=== PATIENT | male | born 1965 | race Caucasian/White ===

== ENCOUNTER 2020-01-05 15:52 | Emergency (ER) | payer MEDICARE ==
[2020-01-05] MEDS ORDERED: Sodium Chloride 0.9% 1000 ML 1,000 ML IV STA (16:15)
--- NOTE | 2020-01-05 16:23 | ERPHSYRPT ---
- History of Present Illness Time Seen by Provider: 01/05/20 16:10 Source: patient, family Exam Limitations: no limitations Physician History: This is a 54-year-old male who has multiple medical issues. Patient has had a renal transplant in the past. It was performed in the . Is on immunosuppressive therapy chronically including prednisone daily. Also has been diagnosed with prostate cancer. Has, at times, he urinary retention. Recently discharged from [facility] for treatment of a pneumonia. His ago, the patient was having fevers and the patient was prescribed monurol antibiotic to treat his presumed urinary tract infection. His fever persisted this morning. However, on arrival his temperature is normal. Patient has chronic back pain and has back surgery in the past. He has a history of gout, gastroesophageal reflux disease, anemia. Patient was also placed on diflucan because he frequently gets yeast infections while on antibiotic therapy. Patient sees Dr. Mayer for his renal issues and Dr. Lopez for his transplant issues. Dr. Lopez is in [place] Timing/Duration: day(s) (2) Severity: mild Associated Symptoms: fever Allergies/Adverse Reactions: NSAIDS (Non-Steroidal Anti-Inflamma Adverse Reaction (Verified 04/12/19 11:01) d/t kidney failure iv Adverse Reaction (Uncoded 04/12/19 11:01) Iv dye d/t kidney failure Home Medications: Aspirin 81 gm Chew [Baby Aspirin 81 mg Chew] 81 mg PO DAILY 07/02/17 [ History] Atorvastatin Calcium [Lipitor] 40 mg PO HS 07/02/17 [History] Cholecalciferol (Vitamin D3) [Vitamin D] 400 unit PO DAILY 07/02/17 [History] Docusate Sodium 100 mg [Colace 100 MG] 100 mg PO BID 07/02/17 [History] Ferrous Sulfate 325 mg [Feosol 325 mg] 325 mg PO DAILY 07/02/17 [History] Folic Acid 1 mg PO DAILY 07/02/17 [History] Gabapentin 300 mg PO TID 07/02/17 [History] Hydrocodone Bit/Acetaminophen [[place] 10-325 Tablet] 2 each PO Q4H PRN PRN [History] Polyethylene Glycol 3350 [Miralax] 17 gm PO DAILY PRN PRN 07/02/17 [History] Sodium Bicarbonate 1,300 mg PO TID 07/02/17 [History] Tamsulosin HCl 0.4 mg [Flomax 0.4 MG] 0.8 mg PO HS 07/02/17 [History] Zolpidem Tartrate [Ambien] 10 mg PO HS 07/02/17 [History] predniSONE [Prednisone] 10 mg PO DAILY 07/02/17 [History] Allopurinol 100 mg [Zyloprim 100 mg] 100 mg PO DAILY 04/13/19 [History] Magnesium Oxide 400 mg [Mag-Ox 400] 400 mg PO DAILY 04/13/19 [History] Fluconazole [Diflucan] 200 mg PO DAILY 01/05/20 [History] Fosfomycin Tromethamine [Monurol] 3 gm PO TID 01/05/20 [History] Linagliptin [Tradjenta] 5 mg PO DAILY 01/05/20 [History] Pantoprazole 20 mg [Protonix 20MG Tablet] 20 mg PO DAILY 01/05/20 [History ] Sevelamer Carbonate [Renvela] 800 mg PO TID 01/05/20 [History] mycophenolate mofetiL [Mycophenolate Mofetil] 250 mg PO BID 01/05/20 [History] - Review of Systems Constitutional: Fever, Weakness Eyes: No Symptoms Ears, Nose, & Throat: No Symptoms Respiratory: No Symptoms Cardiac: No Symptoms Abdominal/Gastrointestinal: No Symptoms Genitourinary Symptoms: No Symptoms Musculoskeletal: No Symptoms Skin: No Symptoms Neurological: No Symptoms Psychological: No Symptoms Endocrine: No Symptoms Hematologic/Lymphatic: No Symptoms Immunological/Allergic: No Symptoms All Other Systems: Reviewed and Negative - Past Medical History Pertinent Past Medical History: Yes Neurological History: TIA ENT History: Cataracts Cardiac History: High Cholesterol, Hypertension Respiratory History: No Pertinent History Endocrine Medical History: No Pertinent History Musculoskeletal History: Osteoarthritis, Osteoporosis, Other GI Medical History: GERD, Other History: Renal Disease, Other Psycho-Social History: No Pertinent History Male Reproductive Disorders: Prostate Problems Other Medical History: kidney transplant 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 rods herniated disc and bone fragment to back. - Past Surgical History Past Surgical History: Yes Neuro Surgical History: No Pertinent History Cardiac: No Pertinent History Respiratory: No Pertinent History Gastrointestinal: No Pertinent History Genitourinary: Kidney Surgery, Kidney Transplant Musculoskeletal: Orthopedic Surgery Male Surgical History: No Pertinent History Other Surgical History: lymph node removed from L neck, fistula L side, back surgery, skin CA removed from L shoulder squamous cell carcinoma and basal cell R scalp and chest. shoulder rotator cuff R side.prostate cancer.[id number]. [id number] - Social History Smoking Status: Former smoker Exposure to second hand smoke: No Drug Use: none - Nursing Vital Signs Nursing Vital Signs: Initial Vital Signs Temperature 98.6 F 01/05/20 16:01 Pulse Rate 65 01/05/20 16:01 Respiratory Rate 18 01/05/20 16:01 Blood Pressure 106/60 01/05/20 16:01 O2 Sat by Pulse Oximetry 94 L 01/05/20 16:01 Pain Scale Pain Intensity 8 Ordered Tests: Active Orders 24 hr Category Date Time Status Garcia [Catheter-Hewitt Garcia] STAT Care 01/05/20 16:17 Active IV Insertion STAT Care 01/05/20 16:15 Active Pulse Oximetry (ED) STAT Care 01/05/20 16:15 Active CHEST 1 VIEW (PORTABLE) Stat Exams 01/05/20 16:16 Taken BLOOD CULTURE Stat Lab 01/05/20 16:35 Received CBC W DIFF Stat Lab 01/05/20 16:39 Completed CMP Stat Lab 01/05/20 16:39 Completed CULTURE,URINE Stat Lab 01/05/20 17:30 Received Lactic Acid Stat Lab 01/05/20 16:29 Completed UA W/RFX UR CULTURE Stat Lab 01/05/20 17:30 Completed Medication Summary Discontinued Medications Generic Name Dose Route Start Last Admin Trade Name Chitra PRN Reason Stop Dose Admin Sodium Chloride 1,000 mls @ 999 mls/hr 01/05/20 16:15 01/05/20 17:51 Sodium Chloride 0.9% 1000 Ml IV 01/05/20 17:15 Infused .Q1H1M STA Infusion Sodium Chloride Confirm 01/05/20 16:46 Sodium Chloride 0.9% 1000 Ml Administered 01/05/20 16:47 Dose 1,000 mls @ ud .ROUTE .STK-MED ONE Sodium Chloride Confirm 01/05/20 16:52 Sodium Chloride 0.9% 1000 Ml Administered 01/05/20 16:53 Dose 1,000 mls @ ud .ROUTE .STK-MED ONE Lab/Rad Data: Laboratory Result Diagrams 01/05/20 16:39 01/05/20 16:39 Laboratory Results 01/05/20 01/05/20 01/05/20 Range/Units 17:30 16:39 16:39 WBC 9.9 (4.0-10.5) K/mm3 RBC 3.09 L (4.1-5.6) M/mm3 Hgb 9.4 L (12.5-18.0) gm/dl Hct 32.3 L (42-50) % MCV 104.5 H (78-100) fl MCH 30.4 (26-32) pg MCHC 29.1 L (32-36) g/dl RDW 17.7 H (11.5-14.0) % Plt Count 246 (150-450) K/mm3 MPV 9.8 (7.5-11.0) fl Gran % 79.7 H (36.0-66.0) % Eos # (Auto) 0.19 (0-0.5) Absolute Lymphs (auto) 0.94 L (1.0-4.6) Absolute Monos (auto) 0.85 (0.0-1.3) Lymphocytes % 9.5 L (24.0-44.0) % Monocytes % 8.6 (0.0-12.0) % Eosinophils % 1.9 (0.00-5.0) % Basophils % 0.3 (0.0-0.4) % Absolute Granulocytes 7.84 H (1.4-6.9) Basophils # 0.03 (0-0.4) Sodium 143 (137-145) mmol/L Potassium 4.7 (3.5-5.1) mmol/L Chloride 104 (98-107) mmol/L Carbon Dioxide 25 (22-30) mmol/L Anion Gap 18.6 H (5-15) MEQ/L BUN 79 H (9-20) mg/dL Creatinine 5.84 H (0.66-1.25) mg/dL Estimated GFR 10.7 ML/MIN Glucose 105 (74-106) mg/dL Lactic Acid (0.4-2.0) Calcium 8.4 (8.4-10.2) mg/dL Total Bilirubin 0.50 (0.2-1.3) mg/dL AST 43 (17-59) U/L ALT 16 (0-50) U/L Alkaline Phosphatase 59 (38-126) U/L Serum Total Protein 6.7 (6.3-8.2) g/dL Albumin 3.5 (3.5-5.0) g/dL Urine Color YELLOW (YELLOW) Urine Appearance CLOUDY (CLEAR) Urine pH 6.0 (5-6) Ur Specific [place] 1.014 (1.005-1.025) Urine Protein 100 (Negative) Urine Ketones NEGATIVE (NEGATIVE) Urine Blood MODERATE (0-5) Servando/ul Urine Nitrite NEGATIVE (NEGATIVE) Urine Bilirubin NEGATIVE (NEGATIVE) Urine Urobilinogen NEGATIVE (0-1) mg/dL Ur Leukocyte Esterase LARGE (NEGATIVE) Urine WBC (Auto) >100 (0-5) /HPF Urine RBC (Auto) 11-15 (0-2) /HPF U Epithel Cells (Auto) NONE (FEW) /HPF Urine Bacteria (Auto) NONE (NEGATIVE) /HPF Urine Culture Reflexed ORDERED SEPARATELY (NO) Urine Glucose NEGATIVE (NEGATIVE) mg/dL 01/05/20 Range/Units 16:29 WBC (4.0-10.5) K/mm3 RBC (4.1-5.6) M/mm3 Hgb (12.5-18.0) gm/dl Hct (42-50) % MCV (78-100) fl MCH (26-32) pg MCHC (32-36) g/dl RDW (11.5-14.0) % Plt Count (150-450) K/mm3 MPV (7.5-11.0) fl Gran % (36.0-66.0) % Eos # (Auto) (0-0.5) Absolute Lymphs (auto) (1.0-4.6) Absolute Monos (auto) (0.0-1.3) Lymphocytes % (24.0-44.0) % Monocytes % (0.0-12.0) % Eosinophils % (0.00-5.0) % Basophils % (0.0-0.4) % Absolute Granulocytes (1.4-6.9) Basophils # (0-0.4) Sodium (137-145) mmol/L Potassium (3.5-5.1) mmol/L Chloride (98-107) mmol/L Carbon Dioxide (22-30) mmol/L Anion Gap (5-15) MEQ/L BUN (9-20) mg/dL Creatinine (0.66-1.25) mg/dL Estimated GFR ML/MIN Glucose (74-106) mg/dL Lactic Acid 0.7 (0.4-2.0) Calcium (8.4-10.2) mg/dL Total Bilirubin (0.2-1.3) mg/dL AST (17-59) U/L ALT (0-50) U/L Alkaline Phosphatase (38-126) U/L Serum Total Protein (6.3-8.2) g/dL Albumin (3.5-5.0) g/dL Urine Color (YELLOW) Urine Appearance (CLEAR) Urine pH (5-6) Ur Specific [place] (1.005-1.025) Urine Protein (Negative) Urine Ketones (NEGATIVE) Urine Blood (0-5) Servando/ul Urine Nitrite (NEGATIVE) Urine Bilirubin (NEGATIVE) Urine Urobilinogen (0-1) mg/dL Ur Leukocyte Esterase (NEGATIVE) Urine WBC (Auto) (0-5) /HPF Urine RBC (Auto) (0-2) /HPF U Epithel Cells (Auto) (FEW) /HPF Urine Bacteria (Auto) (NEGATIVE) /HPF Urine Culture Reflexed (NO) Urine Glucose (NEGATIVE) mg/dL - Progress Progress: unchanged Progress Note: 01/05/20 18:[address] Wong who is covering for the patient's senior developer, Dr. Mayer. I reviewed the patient's history, condition, laboratory data and old lab results. Symptomatically improved. Dr. Wong states that the patient can go home, continue his antibiotics and antifungal medication as prescribed. Patient is to follow-up with his senior developer on Wednesday, January 08, [address]Jose Cruz: Other (Dr. Wong) Counseled pt/family regarding: lab results, diagnosis, need for follow-up - Departure Departure Disposition: Home Clinical Impression: UTI (urinary tract infection), Urinary retention Condition: Stable Critical Care Time: No Referrals: XUAN CASE [Primary Care Provider] - Additional Instructions: Continue Garcia catheter. Call your urologist on Wednesday January 08, 2020 for further management. Return to the emergency department if symptoms worsen. Continue your antibiotics and antifungal medication as prescribed.
[2020-01-05 16:41] LABS: Absolute Neutrophil Ct (ANC) 7.84 (1.4-6.9); BASOPHIL % 0.3 % (0.0-0.4); Basophil (Absolute #) 0.03 (0-0.4); Eosinophil % 1.9 % (0.00-5.0); Eosinophil (Absolute #) 0.19 (0-0.5); Hematocrit 32.3 % (42-50); Hemoglobin 9.4 gm/dl (12.5-18.0); Lymphocyte (Absolute #) 0.94 (1.0-4.6); Lymphocytes % 9.5 % (24.0-44.0); Mean Cell Volume 104.5 fl (78-100); Mean Corpuscular Hemoglobin 30.4 pg (26-32); Mean Corpuscular Hgb Concent. 29.1 g/dl (32-36); Mean Platelet Volume 9.8 fl (7.5-11.0); Monocyte (Absolute #) 0.85 (0.0-1.3); Monocytes % 8.6 % (0.0-12.0); Neutrophil % 79.7 % (36.0-66.0); Platelet Count 246 K/mm3 (150-450); Red Blood Count 3.09 M/mm3 (4.1-5.6); Red Cell Distribution Width 17.7 % (11.5-14.0); White Blood Count 9.9 K/mm3 (4.0-10.5)
[2020-01-05] MEDS ORDERED: Sodium Chloride 0.9% 1000 ML 0 ML ONE (16:46)
[2020-01-05] MEDS ORDERED: Sodium Chloride 0.9% 1000 ML 1,000 ML ONE (16:52)
[2020-01-05 16:57] LABS: ALBUMIN 3.5 g/dL (3.5-5.0); ANION GAP 18.6 MEQ/L (5-15); BILIRUBIN,TOTAL 0.5 mg/dL (0.2-1.3); Calcium 8.4 mg/dL (8.4-10.2); Creatinine 1 5.84 mg/dL (0.66-1.25); Potassium 4.7 mmol/L (3.5-5.1); Total Protein 6.7 g/dL (6.3-8.2)
[2020-01-05 17:47] LABS: Appearance CLOUDY (CLEAR); Bilirubin NEGATIVE (NEGATIVE); Blood MODERATE Ery/ul (0-5); Glucose NEGATIVE (NEGATIVE); Ketones NEGATIVE (NEGATIVE); Leukocyte Esterase LARGE (NEGATIVE); Nitrite NEGATIVE (NEGATIVE); Protein,Urine Dip 100 (Negative); Specific Gravity 1.014 (1.005-1.025); Urobilinogen NEGATIVE mg/dL (0-1); WBC >100 /HPF (0-5)
[2020-01-05 18:46] VITALS: BP 105/68; PULSE 81; O2SAT 99
--- NOTE | 2020-01-05 21:39 | XRAY ---
Indication: Fever. Comparison: None Portable chest demonstrates minimal right base subsegmental atelectasis/scarring. Remaining heart and lungs normal with right Port-A-Cath. Bony thorax demonstrates mild degenerative changes, healing posterior left 8 rib fracture, and partially visualized lumbar spinal hardware. Impression: Nonacute chest with chronic features.
== END 2020-01-05 19:00 | disposition home or self-care (01) ==
LOC: ED 15:52
DX: N39.0 Urinary tract infection, site not specified (principal); R33.9 Retention of urine, unspecified; I10 Essential (primary) hypertension; Z79.899 Other long term (current) drug therapy
CPT/HCPCS: 36000; 36415; 51702; 71045; 80053; 81001; 83605; 85025; 87040; 87086; 94760; 96360; 99284; J1642

== ENCOUNTER 2020-02-04 15:33 | Emergency (ER) | payer MEDICARE ==
[2020-02-04 16:11] VITALS: BP 112/65
[2020-02-04] MEDS ORDERED: XYLOCAINE 1% HCL 20 ML MDV ONE (16:37)
--- NOTE | 2020-02-04 17:58 | ERPHSYRPT ---
- History of Present Illness Time Seen by Provider: 02/04/20 15:45 Source: patient Exam Limitations: no limitations Patient Subjective Stated Complaint: Cut to left elbow Triage Nursing Assessment: blood noted on dressing and sleeve to left elbow Physician History: Is a 54-year-old male who has a history of chronic kidney diseasefistula in his left forearm presents with a laceration to the left elbow and abrasion to the back from a fall low height onto concrete. Of consciousness no other complaint of pain except the elbow and the back Occurred: just prior to arrival Reason for Fall: unknown Injuries/Pain Location: upper extremity (Left elbow), back Loss of Consciousness: no loss of consciousness Quality: sharpness Severity of Pain-Max: mild Severity of Pain-Current: mild Modifying Factors: Improves With: nothing Associated Symptoms (Fall): denies symptoms Allergies/Adverse Reactions: NSAIDS (Non-Steroidal Anti-Inflamma Adverse Reaction (Verified 04/12/19 11:01) d/t kidney failure iv Adverse Reaction (Uncoded 04/12/19 11:01) Iv dye d/t kidney failure Home Medications: Aspirin 81 gm Chew [Baby Aspirin 81 mg Chew] 81 mg PO DAILY 07/02/17 [ History] Atorvastatin Calcium [Lipitor] 40 mg PO HS 07/02/17 [History] Cholecalciferol (Vitamin D3) [Vitamin D] 400 unit PO DAILY 07/02/17 [History] Docusate Sodium 100 mg [Colace 100 MG] 100 mg PO BID 07/02/17 [History] Ferrous Sulfate 325 mg [Feosol 325 mg] 325 mg PO DAILY 07/02/17 [History] Folic Acid 1 mg PO DAILY 07/02/17 [History] Gabapentin 300 mg PO TID 07/02/17 [History] Hydrocodone Bit/Acetaminophen [[place] 10-325 Tablet] 2 each PO Q4H PRN PRN [History] Polyethylene Glycol 3350 [Miralax] 17 gm PO DAILY PRN PRN 07/02/17 [History] Sodium Bicarbonate 1,300 mg PO TID 07/02/17 [History] Tamsulosin HCl 0.4 mg [Flomax 0.4 MG] 0.8 mg PO HS 07/02/17 [History] Zolpidem Tartrate [Ambien] 10 mg PO HS 07/02/17 [History] predniSONE [Prednisone] 10 mg PO DAILY 07/02/17 [History] Allopurinol 100 mg [Zyloprim 100 mg] 100 mg PO DAILY 04/13/19 [History] Magnesium Oxide 400 mg [Mag-Ox 400] 400 mg PO DAILY 04/13/19 [History] Fluconazole [Diflucan] 200 mg PO DAILY 01/05/20 [History] Fosfomycin Tromethamine [Monurol] 3 gm PO TID 01/05/20 [History] Linagliptin [Tradjenta] 5 mg PO DAILY 01/05/20 [History] Pantoprazole 20 mg [Protonix 20MG Tablet] 20 mg PO DAILY 01/05/20 [History ] Sevelamer Carbonate [Renvela] 800 mg PO TID 01/05/20 [History] mycophenolate mofetiL [Mycophenolate Mofetil] 250 mg PO BID 01/05/20 [History] Hx Tetanus, Diphtheria Vaccination/Date Given: No Hx Influenza Vaccination/Date Given: Yes (08/17) Hx Pneumococcal Vaccination/Date Given: No Immunizations Up to Date: Yes - Review of Systems Constitutional: No Fever, No Chills Eyes: No Symptoms Ears, Nose, & Throat: No Symptoms Respiratory: No Cough, No Dyspnea Cardiac: No Chest Pain, No Edema, No Syncope Abdominal/Gastrointestinal: No Abdominal Pain, No Nausea, No Vomiting, No Diarrhea Genitourinary Symptoms: No Dysuria Musculoskeletal: No Back Pain, No Neck Pain Skin: No Rash Neurological: No Dizziness, No Focal Weakness, No Sensory Changes Psychological: No Symptoms Endocrine: No Symptoms All Other Systems: Reviewed and Negative - Past Medical History Pertinent Past Medical History: Yes Neurological History: No Pertinent History ENT History: Cataracts Cardiac History: No Pertinent History Respiratory History: No Pertinent History Endocrine Medical History: Other Musculoskeletal History: Osteoporosis GI Medical History: No Pertinent History History: Renal Disease Psycho-Social History: No Pertinent History Male Reproductive Disorders: Prostate Cancer Other Medical History: Kidney transplant 1995, Fistula in Left Forearm, Current Prostate Cancer, Chronic Back pain, Urine Culture submitted wednesday - Past Surgical History Past Surgical History: Yes Neuro Surgical History: Other Cardiac: No Pertinent History Respiratory: No Pertinent History Gastrointestinal: No Pertinent History Genitourinary: Kidney Surgery Musculoskeletal: Other Male Surgical History: No Pertinent History Other Surgical History: Laminectomy ( [place] x 2, Screws x 38)2014. Laminectomy 2017 lengthened willam. 1992 Fistula in Left forearm. 1995 Kidney transplant. 2019 Port Right clavicle - Social History Smoking Status: Former smoker Exposure to second hand smoke: No Drug Use: none Patient Lives Alone: No - Nursing Vital Signs Nursing Vital Signs: Initial Vital Signs Temperature 98.3 F 02/04/20 15:34 Pulse Rate 83 02/04/20 15:34 Respiratory Rate 18 02/04/20 15:34 Blood Pressure 112/65 02/04/20 15:34 O2 Sat by Pulse Oximetry 99 02/04/20 15:34 Pain Scale Pain Intensity 0 - Elyssa Coma Score Best Eye Response ([place]): (4) open spontaneously Best Verbal Response (Elyssa): (5) oriented Best Motor Response ([place]): (6) obeys commands [place] Total: 15 - Physical Exam General Appearance: mild distress, alert Head Injury: no evidence of injury Eye Exam: PERRL/EOMI ENT Exam: airway nml Neck Exam: normal inspection, No tenderness Respiratory/Chest Exam: normal breath sounds, No chest tenderness, No respiratory distress Cardiovascular Exam: normal heart sounds, regular rate/rhythm Gastrointestinal Exam: soft, No tenderness, No distention, No guarding, No ecchymosis Back Exam: other (Superficial abrasion to the lower left lumbar area 3 cm in diameter) Extremity Exam: lacerations (6 cm laceration transverse across the olecranon area of the left elbow neurovascular tendon is intact), other (Still the left forearm still has a thrill) Peripheral Pulses: carotid (R): 2+, carotid (L): 2+ Neurologic Exam: alert, oriented x 3 Skin Exam: jaundice, laceration (Elbow) SpO2: 99 O2 Delivery: Room Air Procedures - Laceration/Wound Repair Left Posterior Elbow Wound Location: Left Wound Length (cm): 6 Wound's Depth, Shape: flap Wound Explored: no foreign body noted Irrigated: Yes Hibiclens Prep: Yes Anesthesia: 1% Lidocaine Volume Anesthetic (ccs): 7 Wound Debrided: minimal Wound Repaired With: sutures Suture Size/Type: 4-0, nylon Number of Sutures: 6 Sterile Dressing Applied?: Yes Splint Applied?: No Sling Applied?: No - Course Nursing assessment & vital signs reviewed: Yes Ordered Tests: Active Orders 24 hr Category Date Time Status ELBOW (2 VIEW) Stat Exams 02/04/20 17:10 Taken Medication Summary Discontinued Medications Generic Name Dose Route Start Last Admin Trade Name Chitra PRN Reason Stop Dose Admin Lidocaine HCl Confirm 02/04/20 16:37 Xylocaine 1% Hcl 20 Ml Mdv Administered 02/04/20 16:38 Dose 10 ml .ROUTE .[facility] - Progress Progress: improved - Departure Departure Disposition: Home Clinical Impression: Laceration of elbow Condition: Stable Critical Care Time: No Referrals: XUAN CASE [Primary Care Provider] - Instructions: Wound Care (DC), Laceration Repair With Stitches (DC)
[2020-02-04 18:12] VITALS: PULSE 72; O2SAT 97
--- NOTE | 2020-02-05 08:50 | XRAY ---
Indication: Pain/laceration following fall. Comparison: None 2 views of the left elbow demonstrates posterior soft tissue swelling/laceration and triceps tendon chronic tendinopathy calcifications. No other bony, articular, or soft tissue abnormalities. Comment: Preliminary interpretation was made by [facility]. No critical discrepancy.
== END 2020-02-04 18:13 | disposition home or self-care (01) ==
LOC: ED 15:33
DX: S51.012A Laceration without foreign body of left elbow, initial encounter (principal); W17.89XA Other fall from one level to another, initial encounter; S30.810A Abrasion of lower back and pelvis, initial encounter; M54.9 Dorsalgia, unspecified; Z79.899 Other long term (current) drug therapy; Z79.891 Long term (current) use of opiate analgesic
CPT/HCPCS: 12002; 73070; 99283

== ENCOUNTER 2020-02-20 13:57 | Observation (INO) | payer MEDICARE, SELFPAY ==
[2020-02-20] MEDS ORDERED: TYLENOL 325 MG PO ONE (14:19)
[2020-02-20] MEDS ORDERED: Sodium Chloride 0.9% 1000 ML 1,000 ML IV STA (14:19)
[2020-02-20] MEDS ORDERED: TYLENOL 325 MG ONE (14:22)
[2020-02-20] MEDS ORDERED: Sodium Chloride 0.9% 1000 ML 1,000 ML ONE (14:22)
[2020-02-20 14:30] LABS: Hematocrit 30.8 % (42-50); Hemoglobin 9.6 gm/dl (12.5-18.0); Mean Cell Volume 97.2 fl (78-100); Mean Corpuscular Hemoglobin 30.3 pg (26-32); Mean Corpuscular Hgb Concent. 31.2 g/dl (32-36); Mean Platelet Volume 10.3 fl (7.5-11.0); Platelet Count 220 K/mm3 (150-450); Red Blood Count 3.17 M/mm3 (4.1-5.6); Red Cell Distribution Width 18.6 % (11.5-14.0); White Blood Count 21.7 K/mm3 (4.0-10.5)
[2020-02-20 14:37] LABS: ALBUMIN 3.4 g/dL (3.5-5.0); ANION GAP 14.7 MEQ/L (5-15); BILIRUBIN,TOTAL 0.7 mg/dL (0.2-1.3); Calcium 8.6 mg/dL (8.4-10.2); Creatinine 1 3.63 mg/dL (0.66-1.25); Potassium 4.9 mmol/L (3.5-5.1); Total Protein 6.5 g/dL (6.3-8.2)
--- NOTE | 2020-02-20 14:59 | ERPHSYRPT ---
- History of Present Illness Time Seen by Provider: 02/20/20 14:34 Source: patient, family Exam Limitations: no limitations Patient Subjective Stated Complaint: Fever Triage Nursing Assessment: Patient brought back to ED via w/c and transferred to bed with assist of 1. Patient's states patient started with fever last night as high as 103.7. Patient's report patient being lethargic. Patient also has cloudy urine with mucus in it. Patient has hx of chronic UTI's due to kidney problems. Patient denies pain or discomfort. 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 Patient/ report feeling fatigued and tired with no energy to do his routine activities. He feels totally drained and has decreased urine output. Per report he has similar feeling multiple times in the past whenever he gets UTI. He was recently seen at his urologist office and per urology nurse his urine was clear. Patient tried to get hold of urologist but could not. Urologist office called and recommended starting him on Cipro and fluconazole. He denies any cough or shortness of breath. No abdominal pain nausea or vomiting. No URI symptoms. Denies any positive sick contact. No history of recent travel. Timing/Duration: day(s) (1), gradual onset, worse Severity: moderate Associated Symptoms: fever, malaise, No nausea, No vomiting, No abdominal pain, No shortness of breath Allergies/Adverse Reactions: NSAIDS (Non-Steroidal Anti-Inflamma Adverse Reaction (Verified 02/20/20 13:58) d/t kidney failure iv Adverse Reaction (Uncoded 02/20/20 13:58) Iv dye d/t kidney failure Home Medications: Aspirin 81 gm Chew [Baby Aspirin 81 mg Chew] 81 mg PO DAILY 07/02/17 [ History] Atorvastatin Calcium [Lipitor] 40 mg PO HS 07/02/17 [History] Cholecalciferol (Vitamin D3) [Vitamin D] 400 unit PO DAILY 07/02/17 [History] Docusate Sodium 100 mg [Colace 100 MG] 100 mg PO BID 07/02/17 [History] Ferrous Sulfate 325 mg [Feosol 325 mg] 325 mg PO DAILY 07/02/17 [History] Folic Acid 1 mg PO DAILY 07/02/17 [History] Gabapentin 300 mg PO TID 07/02/17 [History] Hydrocodone Bit/Acetaminophen [[place] 10-325 Tablet] 2 each PO Q4H PRN PRN [History] Polyethylene Glycol 3350 [Miralax] 17 gm PO DAILY PRN PRN 07/02/17 [History] Sodium Bicarbonate 650 mg PO DAILY 07/02/17 [History] Tamsulosin HCl 0.4 mg [Flomax 0.4 MG] 0.4 mg PO HS 07/02/17 [History] Zolpidem Tartrate [Ambien] 10 mg PO HS 07/02/17 [History] predniSONE [Prednisone] 10 mg PO DAILY 07/02/17 [History] Allopurinol 100 mg [Zyloprim 100 mg] 100 mg PO DAILY 04/13/19 [History] Magnesium Oxide 400 mg [Mag-Ox 400] 400 mg PO BID 04/13/19 [History] Linagliptin [Tradjenta] 5 mg PO DAILY 01/05/20 [History] Pantoprazole 20 mg [Protonix 20MG Tablet] 20 mg PO DAILY 01/05/20 [History ] mycophenolate mofetiL [Mycophenolate Mofetil] 250 mg PO BID 01/05/20 [History] calcitrioL [Calcitriol] 1 tab PO DAILY 02/20/20 [History] Hx Tetanus, Diphtheria Vaccination/Date Given: No Hx Influenza Vaccination/Date Given: Yes Hx Pneumococcal Vaccination/Date Given: Yes Immunizations Up to Date: Yes Travel Risk - International Travel Have you traveled outside of the country in past 3 weeks: No Have you or anyone close to you been diagnosed with or: No Do your reside in a community with a known COVID-19 case?: No - Review of Systems Constitutional: Fever Eyes: Eye Redness Ears, Nose, & Throat: No Symptoms Respiratory: No Symptoms Cardiac: No Symptoms Abdominal/Gastrointestinal: No Symptoms Genitourinary Symptoms: Dysuria Musculoskeletal: No Symptoms Skin: No Symptoms Neurological: No Symptoms Psychological: No Symptoms Endocrine: No Symptoms Hematologic/Lymphatic: No Symptoms Immunological/Allergic: No Symptoms - Past Medical History Pertinent Past Medical History: Yes Neurological History: TIA ENT History: Cataracts Cardiac History: High Cholesterol, Hypertension Respiratory History: No Pertinent History Endocrine Medical History: No Pertinent History Musculoskeletal History: Osteoarthritis, Osteoporosis, Other GI Medical History: GERD, Other History: Renal Disease, Other Psycho-Social History: No Pertinent History Male Reproductive Disorders: Prostate Cancer Other Medical History: kidney transplant 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 rods herniated disc and bone fragment to back. Skin cancer to head. Lamectomy X 2 , pelvic fx. - Past Surgical History Past Surgical History: Yes Neuro Surgical History: No Pertinent History Cardiac: No Pertinent History Respiratory: No Pertinent History Gastrointestinal: No Pertinent History Genitourinary: Kidney Surgery, Kidney Transplant Musculoskeletal: Orthopedic Surgery Male Surgical History: No Pertinent History Other Surgical History: lymph node removed from L neck, fistula L side, back surgery, skin CA removed from L shoulder squamous cell carcinoma and basal cell R scalp and chest. shoulder rotator cuff R side.prostate cancer. Parathyroid removal 1995 and 2011 - Social History Smoking Status: Former smoker Exposure to second hand smoke: No Drug Use: none Patient Lives Alone: No - Nursing Vital Signs Nursing Vital Signs: Initial Vital Signs Temperature 102.3 F 02/20/20 14:01 Pulse Rate 115 H 02/20/20 14:01 Respiratory Rate 17 02/20/20 14:01 Blood Pressure 94/59 02/20/20 14:01 O2 Sat by Pulse Oximetry 94 L 02/20/20 14:01 Pain Scale Pain Intensity 0 - Physical Exam General Appearance: no apparent distress, alert, lethargy Eye Exam: PERRL/EOMI, eyes nml inspection Ears, Nose, Throat Exam: TMs normal, pharyngeal erythema Neck Exam: normal inspection, non-tender, supple, full range of motion Respiratory Exam: normal breath sounds, lungs clear, No chest tenderness, No respiratory distress Cardiovascular Exam: regular rate/rhythm, normal heart sounds, normal peripheral pulses Gastrointestinal/Abdomen Exam: soft, normal bowel sounds, No tenderness, No distention Back Exam: normal inspection, normal range of motion Extremity Exam: normal inspection, normal range of motion Neurologic Exam: alert, oriented x 3, cooperative, residential program coordinator II-XII nml as tested Skin Exam: normal color, warm SpO2 Interpretation: normal SpO2: 94 O2 Delivery: Room Air - Course Nursing assessment & vital signs reviewed: Yes EKG Interpreted by Me: RATE, Sinus Tach, NORMAL AXIS, NORMAL INTERVALS, NORMAL QRS Ordered Tests: Active Orders 24 hr Category Date Time Status Up With Assistance ROUTINE Activity 02/20/20 18:53 Active Code Status Order ROUTINE Care 02/20/20 18:54 Active Fall Protocol ROUTINE Care 02/20/20 18:56 Active Garcia [Catheter-[place] Garcia] STAT Care 02/20/20 16:43 Active IV Care Q6H Care 02/20/20 18:54 Active IV Insertion STAT Care 02/20/20 14:[address] in Observation ROUTINE Care 02/20/20 18:54 Active Virgilio Hose, Apply ROUTINE Care 02/20/20 18:53 Active Low Sodium Diet 02/21/20 Breakfast Active CHEST 1 VIEW (PORTABLE) Stat Exams 02/20/20 14:34 Completed KIDNEY [US] Stat Exams 02/20/20 16:42 Taken BLOOD CULTURE Stat Lab 02/20/20 14:35 Received BMP AM.LAB Lab 02/21/20 04:00 Ordered CBC W DIFF AM.LAB Lab 02/21/20 04:00 Ordered CBC W DIFF Stat Lab 02/20/20 14:15 Completed CMP Stat Lab 02/20/20 14:15 Completed CULTURE,URINE Stat Lab 02/20/20 14:19 Ordered Lactic Acid Stat Lab 02/20/20 14:19 Completed Manual Differential NC Stat Lab 02/20/20 14:15 Completed UA W/RFX UR CULTURE Stat Lab 02/20/20 Completed Medication Summary Generic Name Dose Route Start Last Admin Trade Name Freq PRN Reason Stop Dose Admin Acetaminophen 650 mg 02/20/20 18:53 Tylenol 325 Mg PO 03/21/20 18:52 Q4H PRN PRN PAIN AND/OR FEVER Meropenem 500 mg/ Sodium 100 mls @ 200 mls/hr 02/20/20 22:00 Chloride IV 03/21/20 21:59 Q8HT MARCO A Insulin Human Lispro 0 unit 02/20/20 18:53 Humalog SQ 03/21/20 18:52 UD PRN HYPERGLYCEMIA Discontinued Medications Generic Name Dose Route Start Last Admin Trade Name Freq PRN Reason Stop Dose Admin Acetaminophen 975 mg 02/20/20 14:19 02/20/20 14:25 Tylenol 325 Mg PO 02/20/20 14:20 975 mg STAT ONE Administration Acetaminophen Confirm 02/20/20 14:22 Tylenol 325 Mg Administered 02/20/20 14:23 Dose 975 mg .ROUTE .STK-MED ONE Sodium Chloride 1,000 mls @ 999 mls/hr 02/20/20 14:19 02/20/20 15:33 Sodium Chloride 0.9% 1000 Ml IV 02/20/20 15:19 Infused .Q1H1M STA Infusion Sodium Chloride Confirm 02/20/20 14:22 Sodium Chloride 0.9% 1000 Ml Administered 02/20/20 14:23 Dose 1,000 mls @ ud .ROUTE .STK-MED ONE Meropenem 500 mg/ Sodium 100 mls @ 200 mls/hr 02/20/20 15:54 02/20/20 16:20 Chloride IV 02/20/20 16:23 200 mls/hr STAT ONE Administration Sodium Chloride Confirm 02/20/20 16:13 Sodium Chloride 0.9% 100 Ml Ivpb Administered 02/20/20 16:14 Dose 100 mls @ ud IV .STK-MED ONE Meropenem Confirm 02/20/20 16:12 Merrem 500mg Administered 02/20/20 16:13 Dose 500 mg IV .STK-MED ONE Lab/Rad Data: Laboratory Result Diagrams 02/20/20 14:15 02/20/20 14:15 Laboratory Results 02/20/20 02/20/20 02/20/20 Range/Units Unknown 15:00 14:19 WBC (4.0-10.5) K/mm3 RBC (4.1-5.6) M/mm3 Hgb (12.5-18.0) gm/dl Hct (42-50) % MCV (78-100) fl MCH (26-32) pg MCHC (32-36) g/dl RDW (11.5-14.0) % Plt Count (150-450) K/mm3 MPV (7.5-11.0) fl Segmented Neutrophils (36.-66.) % Band Neutrophils (0.0-2.0) % Lymphocytes (Manual) (24-44) % Monocytes (Manual) (0.0-12.0) % Eosinophils (Manual) (0.00-3.0) % Dohle Bodies Platelet Estimate (NORMAL) RBC Morphology Poikilocytosis Anisocytosis Microcytosis Sodium (137-145) mmol/L Potassium (3.5-5.1) mmol/L Chloride (98-107) mmol/L Carbon Dioxide (22-30) mmol/L Anion Gap (5-15) MEQ/L BUN (9-20) mg/dL Creatinine (0.66-1.25) mg/dL Estimated GFR ML/MIN Glucose (74-106) mg/dL Lactic Acid 0.6 (0.4-2.0) Calcium (8.4-10.2) mg/dL Total Bilirubin (0.2-1.3) mg/dL AST (17-59) U/L ALT (0-50) U/L Alkaline Phosphatase (38-126) U/L Serum Total Protein (6.3-8.2) g/dL Albumin (3.5-5.0) g/dL Urine Color YELLOW (YELLOW) Urine Appearance CLOUDY (CLEAR) Urine pH 7.0 (5-6) Ur Specific [place] 1.010 (1.005-1.025) Urine Protein 100 (Negative) Urine Ketones NEGATIVE (NEGATIVE) Urine Blood SMALL (0-5) Servando/ul Urine Nitrite NEGATIVE (NEGATIVE) Urine Bilirubin NEGATIVE (NEGATIVE) Urine Urobilinogen NEGATIVE (0-1) mg/dL Ur Leukocyte Esterase LARGE (NEGATIVE) Urine WBC (Auto) >100 (0-5) /HPF Urine RBC (Auto) 3-5 (0-2) /HPF U Epithel Cells (Auto) NONE (FEW) /HPF Urine Bacteria (Auto) FEW (NEGATIVE) /HPF U Non-Squamous Epi Cells RARE (FEW) /HPF Urine Culture Reflexed ORDERED SEPARATELY (NO) Urine Glucose NEGATIVE (NEGATIVE) mg/dL Influenza Type A Ag NEGATIVE (NEGATIVE) Influenza Type B Ag NEGATIVE (NEGATIVE) RSV (PCR) NEGATIVE (Negative) 02/20/20 02/20/20 Range/Units 14:15 14:15 WBC 21.7 H (4.0-10.5) K/mm3 RBC 3.17 L (4.1-5.6) M/mm3 Hgb 9.6 L (12.5-18.0) gm/dl Hct 30.8 L (42-50) % MCV 97.2 (78-100) fl MCH 30.3 (26-32) pg MCHC 31.2 L (32-36) g/dl RDW 18.6 H (11.5-14.0) % Plt Count 220 (150-450) K/mm3 MPV 10.3 (7.5-11.0) fl Segmented Neutrophils 87 H (36.-66.) % Band Neutrophils 4 H (0.0-2.0) % Lymphocytes (Manual) 7 L (24-44) % Monocytes (Manual) 1 (0.0-12.0) % Eosinophils (Manual) 1 (0.00-3.0) % Dohle Bodies 2+ Platelet Estimate NORMAL (NORMAL) RBC Morphology ABNORMAL Poikilocytosis 1+ Anisocytosis 2+ Microcytosis 1+ Sodium 138 (137-145) mmol/L Potassium 4.9 (3.5-5.1) mmol/L Chloride 103 (98-107) mmol/L Carbon Dioxide 26 (22-30) mmol/L Anion Gap 14.7 (5-15) MEQ/L BUN 59 H (9-20) mg/dL Creatinine 3.63 H (0.66-1.25) mg/dL Estimated GFR 18.6 ML/MIN Glucose 104 (74-106) mg/dL Lactic Acid (0.4-2.0) Calcium 8.6 (8.4-10.2) mg/dL Total Bilirubin 0.70 (0.2-1.3) mg/dL AST 23 (17-59) U/L ALT 11 (0-50) U/L Alkaline Phosphatase 65 (38-126) U/L Serum Total Protein 6.5 (6.3-8.2) g/dL Albumin 3.4 L (3.5-5.0) g/dL Urine Color (YELLOW) Urine Appearance (CLEAR) Urine pH (5-6) Ur Specific [place] (1.005-1.025) Urine Protein (Negative) Urine Ketones (NEGATIVE) Urine Blood (0-5) Servando/ul Urine Nitrite (NEGATIVE) Urine Bilirubin (NEGATIVE) Urine Urobilinogen (0-1) mg/dL Ur Leukocyte Esterase (NEGATIVE) Urine WBC (Auto) (0-5) /HPF Urine RBC (Auto) (0-2) /HPF U Epithel Cells (Auto) (FEW) /HPF Urine Bacteria (Auto) (NEGATIVE) /HPF U Non-Squamous Epi Cells (FEW) /HPF Urine Culture Reflexed (NO) Urine Glucose (NEGATIVE) mg/dL Influenza Type A Ag (NEGATIVE) Influenza Type B Ag (NEGATIVE) RSV (PCR) (Negative) - Progress Progress: improved Progress Note: 02/20/20 16:[address] Fajardo IU daily, recommended Garcia catheter placement to see if there is any obstruction causing reflux/hydro-and obtaining ultrasound of transplanted kidney. In case if there is any obstruction, recommended transferring patient to [facility]. If there is no obstruction recommended continue with antibiotics and keeping patient in here. I have discussed plan with patient who reports that whenever he has a Garcia catheter placed in he has difficulty urinating afterward and usually have to keep Garcia in place for 10 days. He does not want Garcia placed in. I will obtain ultrasound and will discussed with Dr. Fajardo again. 02/20/20 18:51 Pain ultrasound which showed some hydroureter but no hydronephrosis. Distended bladder but post void is less than [address] Jessica purvis and patient is being admitted here. 02/20/20 19:25 I have discussed with Dr. Fajardo who is okay with patient staying in here. He recommended anchoring Garcia for better drainage but patient again refused. Patient also refused to be admitted later as he said "I have been in the hospital almost half of my life". I have discussed with patient and in detail about the consequences of leaving AGAINST MEDICAL ADVICE with development of urosepsis leading to . Later on after long discussion patient is agreeable with staying but does not want Garcia to be placed in. I have discussed with him about the risk of developing urosepsis even with antibiotic but not putting Garcia but he does not want it. - Departure Departure Disposition: Observation Clinical Impression: UTI (urinary tract infection) Qualifiers: Urinary tract infection type: site unspecified Hematuria presence: without hematuria Qualified Code(s): N39.0 - Urinary tract infection, site not specified Sepsis Qualifiers: Sepsis type: sepsis due to unspecified organism Sepsis acute organ dysfunction status: unspecified Qualified Code(s): A41.9 - Sepsis, unspecified organism Condition: Fair Critical Care Time: Yes Critical Care Time(excluding separately billable procedures): Critical 30-74 mins Referrals: XUAN CASE [Primary Care Provider] -
--- NOTE | 2020-02-20 15:30 | XRAY ---
Indication: Fever. Pain with urinating. Chronic UTIs. Comparison: January 05, 2020. Portable chest is now clear. Heart and mediastinal structures within normal limits with stable right Port-A-Cath. Bony thorax intact again with mild degenerative changes, healing left 8 rib fracture, and partially visualized lumbar spinal hardware. Impression: Nonacute chest with chronic features.
[2020-02-20 15:53] LABS: INFLUENZA A NEGATIVE (NEGATIVE); INFLUENZA B NEGATIVE (NEGATIVE); RESPIRATORY SYNCTIAL VIRUS NEGATIVE (Negative)
[2020-02-20 15:54] LABS: Appearance CLOUDY (CLEAR); Bacteria FEW /HPF (NEGATIVE); Bilirubin NEGATIVE (NEGATIVE); Blood SMALL Ery/ul (0-5); Glucose NEGATIVE (NEGATIVE); Ketones NEGATIVE (NEGATIVE); Leukocyte Esterase LARGE (NEGATIVE); Nitrite NEGATIVE (NEGATIVE); Non-Squamous Epithelial Cells RARE /HPF (FEW); Protein,Urine Dip 100 (Negative); Urobilinogen NEGATIVE mg/dL (0-1); WBC >100 /HPF (0-5)
[2020-02-20] MEDS ORDERED: MERREM 500MG 500 MG in Sodium Chloride 100ML MINI-BAG PLUS 100 ML IV ONE (15:54)
[2020-02-20] MEDS ORDERED: MERREM 500MG IV ONE ×2 (16:12→22:12)
[2020-02-20] MEDS ORDERED: Sodium Chloride 0.9% 100 ML IVPB 100 ML IV ONE ×2 (16:13→22:14)
[2020-02-20 16:28] LABS: ANISOCYTOSIS 2+; BAND 4 % (0.0-2.0); Dohle Bodies 2+; Eosinophil 1 % (0.00-3.0); Lymphocytes 7 % (24-44); Microcytosis 1+; Monocyte 1 % (0.0-12.0); Neutrophils 87 % (36.-66.); Platelet Estimate NORMAL (NORMAL); Poikilocytosis 1+; Total Cells Counted 100
[2020-02-20] MEDS ORDERED: TYLENOL 325 MG PO PRN (18:53)
[2020-02-20] MEDS ORDERED: HUMALOG SQ PRN (18:53)
[2020-02-20] MEDS: MERREM 500MG 500 MG in Sodium Chloride 100ML MINI-BAG PLUS 100 ML IV SCH (22:29)
[2020-02-20] MEDS ORDERED: Norco 10/325 MG Tablet PO PRN (23:42)
[2020-02-20] MEDS ORDERED: Ambien 10 MG ONE (23:47)
[2020-02-21] MEDS ORDERED: ZOCOR 20MG PO SCH (00:01)
[2020-02-21] MEDS ORDERED: Ambien 10 MG PO SCH (00:01)
[2020-02-21] MEDS ORDERED: Colace 100 MG PO SCH ×2 (00:01→10:00)
[2020-02-21] MEDS: MAG-OX 400 PO SCH ×2 (00:02→08:42)
[2020-02-21] MEDS: NEURONTIN 300 MG PO SCH ×2 (00:02→08:41)
[2020-02-21] MEDS: Sodium Chloride 0.9% 1000 ML 1,000 ML IV SCH ×2 (00:04→08:38)
[2020-02-21] MEDS: Flomax 0.4 MG PO SCH ×2 (00:14→00:22)
[2020-02-21] MEDS ORDERED: MERREM 500MG IV ONE (05:13)
[2020-02-21 05:26] LABS: BASOPHIL % 0.2 % (0.0-0.4); Basophil (Absolute #) 0.03 (0-0.4); Eosinophil % 0.5 % (0.00-5.0); Eosinophil (Absolute #) 0.06 (0-0.5); Hematocrit 28.5 % (42-50); Hemoglobin 8.8 gm/dl (12.5-18.0); Lymphocyte (Absolute #) 0.83 (1.0-4.6); Lymphocytes % 6.6 % (24.0-44.0); Mean Cell Volume 97.9 fl (78-100); Mean Corpuscular Hemoglobin 30.2 pg (26-32); Mean Corpuscular Hgb Concent. 30.9 g/dl (32-36); Mean Platelet Volume 10.6 fl (7.5-11.0); Monocyte (Absolute #) 0.73 (0.0-1.3); Monocytes % 5.8 % (0.0-12.0); Neutrophil % 86.9 % (36.0-66.0); Platelet Count 217 K/mm3 (150-450); Red Blood Count 2.91 M/mm3 (4.1-5.6); Red Cell Distribution Width 18.5 % (11.5-14.0); White Blood Count 12.7 K/mm3 (4.0-10.5)
[2020-02-21] MEDS: MERREM 500MG 500 MG in Sodium Chloride 100ML MINI-BAG PLUS 100 ML IV SCH (05:39)
[2020-02-21 05:42] LABS: ANION GAP 13.2 MEQ/L (5-15); Calcium 7.9 mg/dL (8.4-10.2); Creatinine 1 3.39 mg/dL (0.66-1.25); Potassium 4.6 mmol/L (3.5-5.1)
[2020-02-21] MEDS ORDERED: Voltaren GEL TOP PRN (07:20)
[2020-02-21] MEDS ORDERED: Miralax Powder 17GM PACKET PO PRN (07:20)
[2020-02-21] MEDS ORDERED: MEDICATION INTERVENTION MC SCH ×2 (07:45)
--- NOTE | 2020-02-21 08:47 | XRAY ---
Indication: Kidney transplant. Hydronephrosis. Two-dimensional renal sonogram performed. Comparison: None Transplanted kidney is in the right lower quadrant measuring 9.1 x 6.0 x 6.2 cm. There is a 3.9 x 1.7 x 3.1 cm midpole exophytic cyst. No other sulci cystic renal mass. Minimal pelvic prominence but no gross hydronephrosis or perinephric fluid. Cortical medullary differentiation preserved. [place] right kidney measures 5.4 x 4.9 x 3.3 cm without solid/cystic mass or hydronephrosis. [place] left kidney not seen. Urinary bladder is moderately distended with prevoid volume 305 cc. The transplanted right kidney ureteropelvic junction is identified with distal ureter up to 8 mm in diameter. Ureteral jet not seen within the allotted exam time. Urinary bladder postvoid volume is 39 cc. Impression: 1. Right lower quadrant transplanted kidney demonstrates exophytic cyst and minimal pelvic prominence. Negative for solid renal mass or hydronephrosis. 2. Atrophic [place] right kidney. [place] left kidney not seen. 3. Urinary bladder grossly unremarkable with pre and post void volumes as above. Comment: I discussed the case with the ordering clinician, Dr. Blevins following the sonogram.
--- NOTE | 2020-02-21 09:38 | PCM.SSS ---
History of Present Illness - Chief Complaint Chief Complaint: fever, urinary frequency History of Present Illness: is a 54 years old male with remote history of kidney transplant on immunosuppressant therapy with multiple UTIs/sepsis in the past related to ESBL E. coli presented in the ER with chief complaint of fever with a T-max of 103 last night associated with chills. Patient/ report feeling fatigued and tired with no energy to do his routine activities. He feels totally drained and has decreased urine output. Per report he has similar feeling multiple times in the past whenever he gets UTI. He was recently seen at his urologist office and per urology nurse his urine was clear. Patient tried to get hold of urologist but could not. Urologist office called and recommended starting him on Cipro and fluconazole. He denies any cough or shortness of breath. No abdominal pain nausea or vomiting. No URI symptoms. Denies any positive sick contact. No history of recent travel. Timing/Duration: day(s) (1), gradual onset, worse Severity: moderate Associated Symptoms: fever, malaise, No nausea, No vomiting, No abdominal pain, No shortness of breath - Review of Systems Constitutional: Fever, No Chills Eyes: No Symptoms Ears, Nose, & Throat: No Symptoms Respiratory: No Cough, No Short Of Breath Cardiac: No Chest Pain, No Edema, No Syncope Abdominal/Gastrointestinal: No Abdominal Pain, No Nausea, No Vomiting, No Diarrhea Genitourinary Symptoms: No Dysuria Musculoskeletal: No Back Pain, No Neck Pain Skin: No Rash Neurological: No Dizziness, No Focal Weakness, No Sensory Changes Psychological: No Symptoms Endocrine: No Symptoms Hematologic/Lymphatic: No Symptoms Immunological/Allergic: No Symptoms Medications & Allergies Home Medications: Home Medication List Aspirin 81 gm Chew [Baby Aspirin 81 mg Chew] 81 mg PO DAILY 07/02/17 [ History Confirmed 02/20/20] Atorvastatin Calcium [Lipitor] 40 mg PO HS 07/02/17 [History Confirmed 02/20/20] Cholecalciferol (Vitamin D3) [Vitamin D] 400 unit PO DAILY 07/02/17 [History Confirmed 02/20/20] Ferrous Sulfate 325 mg [Feosol 325 mg] 325 mg PO DAILY 07/02/17 [History Confirmed 02/20/20] Folic Acid 1 mg PO DAILY 07/02/17 [History Confirmed 02/20/20] Gabapentin 300 mg PO TID 07/02/17 [History Confirmed 02/20/20] Polyethylene Glycol 3350 [Miralax] 17 gm PO DAILY PRN PRN 07/02/17 [History Confirmed 02/20/20] Sodium Bicarbonate 650 mg PO DAILY 07/02/17 [History Confirmed 02/20/20] Tamsulosin HCl 0.4 mg [Flomax 0.4 MG] 0.4 mg PO HS 07/02/17 [History Confirmed 02/20/20] Zolpidem Tartrate [Ambien] 10 mg PO HS 07/02/17 [History Confirmed 02/20/20] predniSONE [Prednisone] 10 mg PO DAILY 07/02/17 [History Confirmed 02/20/20] Allopurinol 100 mg [Zyloprim 100 mg] 100 mg PO DAILY 04/13/19 [History Confirmed 02/20/20] Magnesium Oxide 400 mg [Mag-Ox 400] 400 mg PO BID 04/13/19 [History Confirmed 02/20/20] Linagliptin [Tradjenta] 5 mg PO DAILY 01/05/20 [History Confirmed 02/20/20] Pantoprazole 20 mg [Protonix 20MG Tablet] 20 mg PO DAILY 01/05/20 [ History Confirmed 02/20/20] mycophenolate mofetiL [Mycophenolate Mofetil] 250 mg PO BID 01/05/20 [History Confirmed 02/20/20] Diclofenac Sodium Gel [Voltaren GEL] 1 gm TOP TIDPRN PRN 02/20/20 [ History Confirmed 02/20/20] Docusate Sodium [Stool Softener] 50 mg PO BID 02/20/20 [History Confirmed ] Hydrocodone Bitartrate [Hysingla ER] 120 mg PO DAILY 02/20/20 [History Confirmed 02/20/20] calcitrioL [Calcitriol] 0.5 mcg PO DAILY 02/20/20 [History Confirmed 02/20/20] Ciprofloxacin [Cipro 500 MG] 500 mg PO BID #30 tablet 02/21/20 [Rx] Fluconazole 100 mg [Diflucan 100 MG] 100 mg PO BID #30 tablet 02/21/20 [Rx] Allergies/Adverse Reactions: Allergies Allergy/AdvReac Type Severity Reaction Status Date / Time NSAIDS (Non-Steroidal AdvReac Verified 02/20/20 13:58 Anti-Inflamma iv AdvReac Uncoded 02/20/20 13:58 - Past Medical History Past Medical History: Yes Neurological History: TIA ENT History: Cataracts Cardiac History: High Cholesterol, Hypertension Respiratory History: No Pertinent History Endocrine Medical History: No Pertinent History Musculoskelatal History: Osteoarthritis, Osteoporosis, Other GI Medical History: GERD, Other History: Renal Disease, Other Pyscho-Social History: No Pertinent History Male Reproductive Disorders: Prostate Cancer Comment: kidney transplant 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 rods herniated disc and bone fragment to back. Skin cancer to head. Lamectomy X 2 , pelvic fx. - Past Surgical History Past Surgical History: Yes Neuro Surgical History: No Pertinent History Cardiac History: No Pertinent History Respiratory Surgery: No Pertinent History GI Surgical History: No Pertinent History Genitourinary Surgical Hx: Kidney Surgery, Kidney Transplant Musculskeletal Surgical Hx: Orthopedic Surgery Male Surgical History: No Pertinent History Other Surgical History: lymph node removed from L neck, fistula L side, back surgery, skin CA removed from L shoulder squamous cell carcinoma and basal cell R scalp and chest. shoulder rotator cuff R side.prostate cancer. Parathyroid removal 1995 and 2011 - Social History Smoking Status: Former smoker Exposure to second hand smoke: No Alcohol: None Drug Use: none - Physical Exam Vital Signs: Vital Signs - 24 hr Temp Pulse Resp BP Pulse Ox 02/21/20 08:00 98.8 F 73 18 122/72 98 02/21/20 03:47 97.6 F 67 17 101/55 98 02/21/20 00:00 97.8 F 75 18 96/54 97 02/20/20 21:00 97.8 F 67 19 120/68 98 02/20/20 19:47 94 L 02/20/20 18:50 66 14 107/64 98 02/20/20 18:08 87 19 107/64 96 02/20/20 16:59 78 18 98/56 96 02/20/20 15:54 99.2 F 85 18 91/53 95 02/20/20 14:57 98 H 14 100/59 95 02/20/20 14:01 102.3 F 115 H 17 94/59 94 L General Appearance: no apparent distress, alert Neurologic Exam: alert, oriented x 3, cooperative, normal mood/affect, nml cerebellar function, nml station & gait, sensation nml, No motor deficits Eye Exam: PERRL/EOMI, eyes nml inspection Ears, Nose, Throat Exam: normal ENT inspection, TMs normal, pharynx normal, moist mucous membranes Neck Exam: normal inspection, non-tender, supple, full range of motion Respiratory Exam: normal breath sounds, lungs clear, No respiratory distress Cardiovascular Exam: regular rate/rhythm, normal heart sounds, normal peripheral pulses Gastrointestinal/Abdomen Exam: soft, normal bowel sounds, No tenderness, No mass Back Exam: normal inspection, normal range of motion, No CVA tenderness, No vertebral tenderness Extremity Exam: normal inspection, normal range of motion, pelvis stable Skin Exam: normal color, warm, dry, No rash Lymphatic Exam: No adenopathy Results - Labs Lab/Micro Results: Accuchecks Date 02/21/20 Time 07:00 Accucheck Value: 94 Lab Results-Last 24 Hours 02/20/20 02/20/20 02/20/20 Range/Units 14:15 14:15 14:19 WBC 21.7 H (4.0-10.5) K/mm3 RBC 3.17 L (4.1-5.6) M/mm3 Hgb 9.6 L (12.5-18.0) gm/dl Hct 30.8 L (42-50) % MCV 97.2 (78-100) fl MCH 30.3 (26-32) pg MCHC 31.2 L (32-36) g/dl RDW 18.6 H (11.5-14.0) % Plt Count 220 (150-450) K/mm3 MPV 10.3 (7.5-11.0) fl Gran % (36.0-66.0) % Eos # (Auto) (0-0.5) Absolute Lymphs (auto) (1.0-4.6) Absolute Monos (auto) (0.0-1.3) Lymphocytes % (24.0-44.0) % Monocytes % (0.0-12.0) % Eosinophils % (0.00-5.0) % Basophils % (0.0-0.4) % Absolute Granulocytes (1.4-6.9) Segmented Neutrophils 87 H (36.-66.) % Band Neutrophils 4 H (0.0-2.0) % Lymphocytes (Manual) 7 L (24-44) % Monocytes (Manual) 1 (0.0-12.0) % Eosinophils (Manual) 1 (0.00-3.0) % Basophils # (0-0.4) Dohle Bodies 2+ Platelet Estimate NORMAL (NORMAL) RBC Morphology ABNORMAL Poikilocytosis 1+ Anisocytosis 2+ Microcytosis 1+ Sodium 138 (137-145) mmol/L Potassium 4.9 (3.5-5.1) mmol/L Chloride 103 (98-107) mmol/L Carbon Dioxide 26 (22-30) mmol/L Anion Gap 14.7 (5-15) MEQ/L BUN 59 H (9-20) mg/dL Creatinine 3.63 H (0.66-1.25) mg/dL Estimated GFR 18.6 ML/MIN Glucose 104 (74-106) mg/dL Lactic Acid 0.6 (0.4-2.0) Calcium 8.6 (8.4-10.2) mg/dL Total Bilirubin 0.70 (0.2-1.3) mg/dL AST 23 (17-59) U/L ALT 11 (0-50) U/L Alkaline Phosphatase 65 (38-126) U/L Serum Total Protein 6.5 (6.3-8.2) g/dL Albumin 3.4 L (3.5-5.0) g/dL Urine Color (YELLOW) Urine Appearance (CLEAR) Urine pH (5-6) Ur Specific [place] (1.005-1.025) Urine Protein (Negative) Urine Ketones (NEGATIVE) Urine Blood (0-5) Servando/ul Urine Nitrite (NEGATIVE) Urine Bilirubin (NEGATIVE) Urine Urobilinogen (0-1) mg/dL Ur Leukocyte Esterase (NEGATIVE) Urine WBC (Auto) (0-5) /HPF Urine RBC (Auto) (0-2) /HPF U Epithel Cells (Auto) (FEW) /HPF Urine Bacteria (Auto) (NEGATIVE) /HPF U Non-Squamous Epi Cells (FEW) /HPF Urine Culture Reflexed (NO) Urine Glucose (NEGATIVE) mg/dL Influenza Type A Ag (NEGATIVE) Influenza Type B Ag (NEGATIVE) RSV (PCR) (Negative) 02/20/20 02/20/20 02/21/20 Range/Units 15:00 Unknown 04:45 WBC 12.7 H (4.0-10.5) K/mm3 RBC 2.91 L (4.1-5.6) M/mm3 Hgb 8.8 L (12.5-18.0) gm/dl Hct 28.5 L (42-50) % MCV 97.9 (78-100) fl MCH 30.2 (26-32) pg MCHC 30.9 L (32-36) g/dl RDW 18.5 H (11.5-14.0) % Plt Count 217 (150-450) K/mm3 MPV 10.6 (7.5-11.0) fl Gran % 86.9 H (36.0-66.0) % Eos # (Auto) 0.06 (0-0.5) Absolute Lymphs (auto) 0.83 L (1.0-4.6) Absolute Monos (auto) 0.73 (0.0-1.3) Lymphocytes % 6.6 L (24.0-44.0) % Monocytes % 5.8 (0.0-12.0) % Eosinophils % 0.5 (0.00-5.0) % Basophils % 0.2 (0.0-0.4) % Absolute Granulocytes 11.00 H (1.4-6.9) Segmented Neutrophils (36.-66.) % Band Neutrophils (0.0-2.0) % Lymphocytes (Manual) (24-44) % Monocytes (Manual) (0.0-12.0) % Eosinophils (Manual) (0.00-3.0) % Basophils # 0.03 (0-0.4) Dohle Bodies Platelet Estimate (NORMAL) RBC Morphology Poikilocytosis Anisocytosis Microcytosis Sodium (137-145) mmol/L Potassium (3.5-5.1) mmol/L Chloride (98-107) mmol/L Carbon Dioxide (22-30) mmol/L Anion Gap (5-15) MEQ/L BUN (9-20) mg/dL Creatinine (0.66-1.25) mg/dL Estimated GFR ML/MIN Glucose (74-106) mg/dL Lactic Acid (0.4-2.0) Calcium (8.4-10.2) mg/dL Total Bilirubin (0.2-1.3) mg/dL AST (17-59) U/L ALT (0-50) U/L Alkaline Phosphatase (38-126) U/L Serum Total Protein (6.3-8.2) g/dL Albumin (3.5-5.0) g/dL Urine Color YELLOW (YELLOW) Urine Appearance CLOUDY (CLEAR) Urine pH 7.0 (5-6) Ur Specific [place] 1.010 (1.005-1.025) Urine Protein 100 (Negative) Urine Ketones NEGATIVE (NEGATIVE) Urine Blood SMALL (0-5) Servando/ul Urine Nitrite NEGATIVE (NEGATIVE) Urine Bilirubin NEGATIVE (NEGATIVE) Urine Urobilinogen NEGATIVE (0-1) mg/dL Ur Leukocyte Esterase LARGE (NEGATIVE) Urine WBC (Auto) >100 (0-5) /HPF Urine RBC (Auto) 3-5 (0-2) /HPF U Epithel Cells (Auto) NONE (FEW) /HPF Urine Bacteria (Auto) FEW (NEGATIVE) /HPF U Non-Squamous Epi Cells RARE (FEW) /HPF Urine Culture Reflexed ORDERED SEPARATELY (NO) Urine Glucose NEGATIVE (NEGATIVE) mg/dL Influenza Type A Ag NEGATIVE (NEGATIVE) Influenza Type B Ag NEGATIVE (NEGATIVE) RSV (PCR) NEGATIVE (Negative) 02/20/ Range/Units 04:45 WBC (4.0-10.5) K/mm3 RBC (4.1-5.6) M/mm3 Hgb (12.5-18.0) gm/dl Hct (42-50) % MCV (78-100) fl MCH (26-32) pg MCHC (32-36) g/dl RDW (11.5-14.0) % Plt Count (150-450) K/mm3 MPV (7.5-11.0) fl Gran % (36.0-66.0) % Eos # (Auto) (0-0.5) Absolute Lymphs (auto) (1.0-4.6) Absolute Monos (auto) (0.0-1.3) Lymphocytes % (24.0-44.0) % Monocytes % (0.0-12.0) % Eosinophils % (0.00-5.0) % Basophils % (0.0-0.4) % Absolute Granulocytes (1.4-6.9) Segmented Neutrophils (36.-66.) % Band Neutrophils (0.0-2.0) % Lymphocytes (Manual) (24-44) % Monocytes (Manual) (0.0-12.0) % Eosinophils (Manual) (0.00-3.0) % Basophils # (0-0.4) Dohle Bodies Platelet Estimate (NORMAL) RBC Morphology Poikilocytosis Anisocytosis Microcytosis Sodium 141 (137-145) mmol/L Potassium 4.6 (3.5-5.1) mmol/L Chloride 107 (98-107) mmol/L Carbon Dioxide 26 (22-30) mmol/L Anion Gap 13.2 (5-15) MEQ/L BUN 69 H (9-20) mg/dL Creatinine 3.39 H (0.66-1.25) mg/dL Estimated GFR 20.1 ML/MIN Glucose 94 (74-106) mg/dL Lactic Acid (0.4-2.0) Calcium 7.9 L (8.4-10.2) mg/dL Total Bilirubin (0.2-1.3) mg/dL AST (17-59) U/L ALT (0-50) U/L Alkaline Phosphatase (38-126) U/L Serum Total Protein (6.3-8.2) g/dL Albumin (3.5-5.0) g/dL Urine Color (YELLOW) Urine Appearance (CLEAR) Urine pH (5-6) Ur Specific [place] (1.005-1.025) Urine Protein (Negative) Urine Ketones (NEGATIVE) Urine Blood (0-5) Servando/ul Urine Nitrite (NEGATIVE) Urine Bilirubin (NEGATIVE) Urine Urobilinogen (0-1) mg/dL Ur Leukocyte Esterase (NEGATIVE) Urine WBC (Auto) (0-5) /HPF Urine RBC (Auto) (0-2) /HPF U Epithel Cells (Auto) (FEW) /HPF Urine Bacteria (Auto) (NEGATIVE) /HPF U Non-Squamous Epi Cells (FEW) /HPF Urine Culture Reflexed (NO) Urine Glucose (NEGATIVE) mg/dL Influenza Type A Ag (NEGATIVE) Influenza Type B Ag (NEGATIVE) RSV (PCR) (Negative) Accuchecks Date 02/21/20 Time 07:00 Accucheck Value: 94 - Radiology Impressions Radiology Exams & Impressions: Radiology Procedures Category Date Time Status CHEST 1 VIEW (PORTABLE) Stat Exams 02/20/20 14:34 Completed KIDNEY [US] Stat Exams 02/20/20 16:42 Completed Assessment/Plan (1) UTI (urinary tract infection) Current Visit: Yes Status: Acute Qualifiers: Urinary tract infection type: site unspecified Hematuria presence: without hematuria Qualified Code(s): N39.0 - Urinary tract infection, site not specified Code(s): N39.0 - URINARY TRACT INFECTION, SITE NOT SPECIFIED (2) Status post kidney transplant Current Visit: Yes Status: Acute Code(s): Z94.0 - KIDNEY TRANSPLANT STATUS Hospital Summary - Hospital Course Hospital Course: Chief Complaint Diagnosis urospesis Allergies Allergy/AdvReac Type Severity Reaction Status Date / Time NSAIDS (Non-Steroidal AdvReac Verified 02/20/20 13:58 Anti-Inflamma iv AdvReac Uncoded 02/20/20 13:58 Vital Signs (Last 24 hours) Temp Pulse Resp BP Pulse Ox 02/21/20 08:00 98.8 F 73 18 122/72 98 02/21/20 03:47 97.6 F 67 17 101/55 98 02/21/20 00:00 97.8 F 75 18 96/54 97 02/20/20 21:00 97.8 F 67 19 120/68 98 02/20/20 19:47 94 L 02/20/20 18:50 66 14 107/64 98 02/20/20 18:08 87 19 107/64 96 02/20/20 16:59 78 18 98/56 96 02/20/20 15:54 99.2 F 85 18 91/53 95 02/20/20 14:57 98 H 14 100/59 95 02/20/20 14:01 102.3 F 115 H 17 94/59 94 L Home Medications Medication Instructions Recorded Confirmed Last Taken Type Diclofenac Sodium Gel [Voltaren 1 gm TOP TIDPRN PRN 02/20/20 02/20/20 Unknown History GEL] Docusate Sodium [Stool Softener] 50 mg PO BID 02/20/20 02/20/20 Unknown History Hydrocodone Bitartrate [Hysingla 120 mg PO DAILY 02/20/20 02/20/20 02/20/20 08: 00 History ER] calcitrioL [Calcitriol] 0.5 mcg PO DAILY 02/20/20 02/20/20 02/20/20 18:00 History Current Medications Generic Name Dose Route Start Last Admin Trade Name Freq PRN Reason Stop Dose Admin Acetaminophen 650 mg 02/20/20 18:53 Tylenol 325 Mg PO 03/21/20 18:52 Q4H PRN PRN PAIN AND/OR FEVER Hydrocodone Bitart/Acetaminophen 1 tab 02/20/20 23:42 02/21/20 00:02 [place] 10/325 Mg Tablet PO 02/25/20 23:41 1 tab Q12H PRN PRN Administration PAIN Allopurinol 100 mg 02/21/20 10:00 02/21/20 08:41 Zyloprim 100 Mg PO 03/22/20 09:59 100 mg DAILY MARCO A Administration Aspirin 81 mg 02/21/20 10:00 02/21/20 08:42 Ecotrin 81 Mg PO 03/22/20 09:59 81 mg DAILY MARCO A Administration Calcitriol 0.5 mcg 02/21/20 10:00 02/21/20 08:45 Calcitriol PO 03/22/20 09:59 0.5 mcg DAILY MARCO A Administration Cholecalciferol 500 unit 02/21/20 10:00 02/21/20 08:42 Vitamin D PO 03/22/20 09:59 500 unit DAILY MARCO A Administration Diclofenac Sodium 1 gm 02/21/20 07:20 02/21/20 08:46 Voltaren Gel TOP 03/22/20 07:19 1 gm TIDPRN PRN Administration PAIN Docusate Sodium 100 mg 02/21/20 10:00 02/21/20 08:51 Colace 100 Mg PO 03/22/20 09:59 Not Given BID MARCO A Ferrous Sulfate 325 mg 02/21/20 10:00 02/21/20 08:42 Feosol 325 Mg PO 03/22/20 09:59 325 mg DAILY MARCO A Administration Folic Acid 1 mg 02/21/20 10:00 02/21/20 08:43 Folate 1 Mg PO 03/22/20 09:59 1 mg DAILY MARCO A Administration Gabapentin 300 mg 02/21/20 00:01 02/21/20 08:41 Neurontin 300 Mg PO 03/22/20 00:00 300 mg TID MARCO A Administration Meropenem 500 mg/ Sodium 100 mls @ 200 mls/hr 02/20/20 22:00 02/21/20 05:39 Chloride IV 03/21/20 21:59 200 mls/hr Q8HT MARCO A Administration Sodium Chloride 1,000 mls @ 100 mls/hr 02/20/20 23:45 02/21/20 08:38 Sodium Chloride 0.9% 1000 Ml IV 03/21/20 23:44 100 mls/hr .Q10H MARCO A Administration Insulin Human Lispro 0 unit 02/20/20 18:53 Humalog SQ 03/21/20 18:52 UD PRN HYPERGLYCEMIA Magnesium Oxide 400 mg 02/21/20 00:01 02/21/20 08:42 Mag-Ox 400 PO 03/22/20 00:00 400 mg BID MARCO A Administration Miscellaneous Information 1 each 02/21/20 07:45 Medication Intervention 03/22/20 07:44 .RN TO CHECK WITH PT [facility] Miscellaneous Information 1 each 02/21/20 07:45 Medication Intervention 03/22/20 07:44 .RN TO CHECK WITH PT [facility] Non-Formulary Drug : 650 mg 02/21/20 10:00 02/21/20 08:45 (Sodium Bicarbonate PO 03/22/20 09:59 650 mg 650 Mg) DAILY MARCO A Administration Pantoprazole Sodium 20 mg 02/21/20 10:00 02/21/20 08:41 Protonix 20mg Tablet PO 03/22/20 09:59 20 mg DAILY MARCO A Administration Polyethylene Glycol 17 gm 02/21/20 07:20 Miralax Powder 17gm Packet PO 03/22/20 07:19 DAILY PRN PRN CONSTIPATION Prednisone 10 mg 02/21/20 10:00 02/21/20 08:42 Deltasone 10 Mg PO 03/22/20 09:59 10 mg DAILY MARCO A Administration Simvastatin 40 mg 02/21/20 00:01 02/21/20 00:04 Zocor 20mg PO 03/22/20 00:00 40 mg HS MARCO A Administration Sitagliptin Phosphate 100 mg 02/21/20 10:00 02/21/20 08:39 Januvia 50 Mg PO 03/22/20 09:59 100 mg DAILY MARCO A Administration Tamsulosin HCl 0.4 mg 02/21/20 00:01 02/21/20 00:22 Flomax 0.4 Mg PO 03/22/20 00:00 0.4 mg HS MARCO A Administration Zolpidem Tartrate 10 mg 02/21/20 00:01 02/21/20 00:02 Ambien 10 Mg PO 03/22/20 00:00 10 mg HS MARCO A Administration Discontinued Medications Generic Name Dose Route Start Last Admin Trade Name Freq PRN Reason Stop Dose Admin Acetaminophen 975 mg 02/20/20 14:19 02/20/20 14:25 Tylenol 325 Mg PO 02/20/20 14:20 975 mg STAT ONE Administration Acetaminophen Confirm 02/20/20 14:22 Tylenol 325 Mg Administered 02/20/20 14:23 Dose 975 mg .ROUTE .STK-MED ONE Docusate Sodium 50 mg 02/21/20 00:01 02/21/20 00:14 Colace 100 Mg PO 03/22/20 00:00 Not Given BID MARCO A Sodium Chloride 1,000 mls @ 999 mls/hr 02/20/20 14:19 02/20/20 15:33 Sodium Chloride 0.9% 1000 Ml IV 02/20/20 15:19 Infused .Q1H1M STA Infusion Sodium Chloride Confirm 02/20/20 14:22 Sodium Chloride 0.9% 1000 Ml Administered 02/20/20 14:23 Dose 1,000 mls @ ud .ROUTE .STK-MED ONE Meropenem 500 mg/ Sodium 100 mls @ 200 mls/hr 02/20/20 15:54 02/20/20 16:20 Chloride IV 02/20/20 16:23 200 mls/hr STAT ONE Administration Sodium Chloride Confirm 02/20/20 16:13 Sodium Chloride 0.9% 100 Ml Ivpb Administered 02/20/20 16:14 Dose 100 mls @ ud IV .STK-MED ONE Sodium Chloride Confirm 02/20/20 22:14 Sodium Chloride 0.9% 100 Ml Ivpb Administered 02/20/20 22:15 Dose 100 mls @ ud IV .STK-MED ONE Meropenem Confirm 02/20/20 16:12 Merrem 500mg Administered 02/20/20 16:13 Dose 500 mg IV .STK-MED ONE Meropenem Confirm 02/20/20 22:12 Merrem 500mg Administered 02/20/20 22:13 Dose 500 mg IV .STK-MED ONE Meropenem Confirm 02/21/20 05:13 Merrem 500mg Administered 02/21/20 05:14 Dose 500 mg IV .STK-MED ONE Zolpidem Tartrate Confirm 02/20/20 23:47 Ambien 10 Mg Administered 02/20/20 23:48 Dose 10 mg .ROUTE .STK-MED ONE Intake & Output (Last 24 hours) 02/18/20 02/19/20 02/20/20 02/21/20 11:59 11:59 11:59 11:59 Intake Total 1060 Output Total 400 Balance 660 Weight 52.9 kg Microbiology Results (Last 24 hours) 02/20/20 14:35 Blood Blood Culture Gram Stain - Pending 02/20/20 14:35 Blood Blood Culture - Pending 02/20/20 14:15 Blood Blood Culture Gram Stain - Pending 02/20/20 14:15 Blood Blood Culture - Pending 02/20/20 14:19 Clean Catch Midstream Urine Culture - Pending Laboratory Results (Last 24 hours) 02/21/20 02/21/20 02/20/20 04:45 04:45 Unknown WBC 12.7 H RBC 2.91 L Hgb 8.8 L Hct 28.5 L MCV 97.9 MCH 30.2 MCHC 30.9 L RDW 18.5 H Plt Count 217 MPV 10.6 Gran % 86.9 H Eos # (Auto) 0.06 Absolute Lymphs (auto) 0.83 L Absolute Monos (auto) 0.73 Lymphocytes % 6.6 L Monocytes % 5.8 Eosinophils % 0.5 Basophils % 0.2 Absolute Granulocytes 11.00 H Segmented Neutrophils Band Neutrophils Lymphocytes (Manual) Monocytes (Manual) Eosinophils (Manual) Basophils # 0.03 Dohle Bodies Platelet Estimate RBC Morphology Poikilocytosis Anisocytosis Microcytosis Sodium 141 Potassium 4.6 Chloride 107 Carbon Dioxide 26 Anion Gap 13.2 BUN 69 H Creatinine 3.39 H Estimated GFR 20.1 Glucose 94 Lactic Acid Calcium 7.9 L Total Bilirubin AST ALT Alkaline Phosphatase Serum Total Protein Albumin Urine Color YELLOW Urine Appearance CLOUDY Urine pH 7.0 Ur Specific [place] 1.010 Urine Protein 100 Urine Ketones NEGATIVE Urine Blood SMALL Urine Nitrite NEGATIVE Urine Bilirubin NEGATIVE Urine Urobilinogen NEGATIVE Ur Leukocyte Esterase LARGE Urine WBC (Auto) >100 Urine RBC (Auto) 3-5 U Epithel Cells (Auto) NONE Urine Bacteria (Auto) FEW U Non-Squamous Epi Cells RARE Urine Culture Reflexed ORDERED SEPARATELY Urine Glucose NEGATIVE Influenza Type A Ag Influenza Type B Ag RSV (PCR) 02/20/20 02/20/20 02/20/20 15:00 14:19 14:15 WBC RBC Hgb Hct MCV MCH MCHC RDW Plt Count MPV Gran % Eos # (Auto) Absolute Lymphs (auto) Absolute Monos (auto) Lymphocytes % Monocytes % Eosinophils % Basophils % Absolute Granulocytes Segmented Neutrophils Band Neutrophils Lymphocytes (Manual) Monocytes (Manual) Eosinophils (Manual) Basophils # Dohle Bodies Platelet Estimate RBC Morphology Poikilocytosis Anisocytosis Microcytosis Sodium 138 Potassium 4.9 Chloride 103 Carbon Dioxide 26 Anion Gap 14.7 BUN 59 H Creatinine 3.63 H Estimated GFR 18.6 Glucose 104 Lactic Acid 0.6 Calcium 8.6 Total Bilirubin 0.70 AST 23 ALT 11 Alkaline Phosphatase 65 Serum Total Protein 6.5 Albumin 3.4 L Urine Color Urine Appearance Urine pH Ur Specific [place] Urine Protein Urine Ketones Urine Blood Urine Nitrite Urine Bilirubin Urine Urobilinogen Ur Leukocyte Esterase Urine WBC (Auto) Urine RBC (Auto) U Epithel Cells (Auto) Urine Bacteria (Auto) U Non-Squamous Epi Cells Urine Culture Reflexed Urine Glucose Influenza Type A Ag NEGATIVE Influenza Type B Ag NEGATIVE RSV (PCR) NEGATIVE 02/20/20 14:15 WBC 21.7 H RBC 3.17 L Hgb 9.6 L Hct 30.8 L MCV 97.2 MCH 30.3 MCHC 31.2 L RDW 18.6 H Plt Count 220 MPV 10.3 Gran % Eos # (Auto) Absolute Lymphs (auto) Absolute Monos (auto) Lymphocytes % Monocytes % Eosinophils % Basophils % Absolute Granulocytes Segmented Neutrophils 87 H Band Neutrophils 4 H Lymphocytes (Manual) 7 L Monocytes (Manual) 1 Eosinophils (Manual) 1 Basophils # Dohle Bodies 2+ Platelet Estimate NORMAL RBC Morphology ABNORMAL Poikilocytosis 1+ Anisocytosis 2+ Microcytosis 1+ Sodium Potassium Chloride Carbon Dioxide Anion Gap BUN Creatinine Estimated GFR Glucose Lactic Acid Calcium Total Bilirubin AST ALT Alkaline Phosphatase Serum Total Protein Albumin Urine Color Urine Appearance Urine pH Ur Specific [place] Urine Protein Urine Ketones Urine Blood Urine Nitrite Urine Bilirubin Urine Urobilinogen Ur Leukocyte Esterase Urine WBC (Auto) Urine RBC (Auto) U Epithel Cells (Auto) Urine Bacteria (Auto) U Non-Squamous Epi Cells Urine Culture Reflexed Urine Glucose Influenza Type A Ag Influenza Type B Ag RSV (PCR) Orders (Last 24 hours) Category Date Time Status Up With Assistance ROUTINE Activity 02/20/20 18:53 Active ACCUCHECK [Accucheck] ACHS Care 02/21/20 07:30 Active Code Status Order ROUTINE Care 02/20/20 18:54 Active Fall Protocol Q1H Care 02/20/20 18:56 Active Garcia [Catheter-[place] Garcia] STAT Care 02/20/20 16:43 Active IV Care Q6H Care 02/20/20 18:54 Active IV Insertion STAT Care 02/20/20 14:[address] in Observation ROUTINE Care 02/20/20 18:54 Active Bhaskar Alvarez ROUTINE Care 02/20/20 18:53 Active Low Sodium Diet 02/21/20 Breakfast Active CHEST 1 VIEW (PORTABLE) Stat Exams 02/20/20 14:34 Completed KIDNEY [US] Stat Exams 02/20/20 16:42 Completed BLOOD CULTURE Stat Lab 02/20/20 14:35 Received BMP AM.LAB Lab 02/21/20 04:45 Completed CBC W DIFF AM.LAB Lab 02/21/20 04:45 Completed CBC W DIFF Stat Lab 02/20/20 14:15 Completed CMP Stat Lab 02/20/20 14:15 Completed CULTURE,URINE Stat Lab 02/20/20 14:19 Ordered Lactic Acid Stat Lab 02/20/20 14:19 Completed Manual Differential NC Stat Lab 02/20/20 14:15 Completed Respiratory Panel Stat Lab 02/20/20 15:00 Completed Acetaminophen 325 mg [Tylenol 325 mg] Med 02/20/20 18:53 Active 650 mg PO Q4H PRN PRN Acetaminophen 325 mg [Tylenol 325 mg] Med 02/20/20 14:22 Discontinued 975 mg .ROUTE .STK-MED ONE Acetaminophen 325 mg [Tylenol 325 mg] Med 02/20/20 14:19 Discontinued 975 mg PO STAT ONE Allopurinol 100 mg [Zyloprim 100 mg] Med 02/21/20 10:00 Active 100 mg PO DAILY Aspirin EC 81 mg [Ecotrin 81 mg] Med 02/21/20 10:00 Active 81 mg PO DAILY Cholecalciferol (Vitamin D3) [Vitamin D] Med 02/21/20 10:00 Active 500 unit PO DAILY Diclofenac Sodium Gel [Voltaren GEL] Med 02/21/20 07:20 Active 1 gm TOP TIDPRN PRN Docusate Sodium 100 mg [Colace 100 MG] Med 02/21/20 10:00 Active 100 mg PO BID Docusate Sodium 100 mg [Colace 100 MG] Med 02/21/20 00:01 Discontinued 50 mg PO BID Ferrous Sulfate 325 mg [Feosol 325 mg] Med 02/21/20 10:00 Active 325 mg PO DAILY Folic Acid 1 mg [Folate 1 mg] Med 02/21/20 10:00 Active 1 mg PO DAILY Gabapentin 300 mg [Neurontin 300 mg] Med 02/21/20 00:01 Active 300 mg PO TID Hydrocodone/APAP 10/325 mg [[place] 10/325 MG Tablet Med 02/20/20 23:42 Active *] 1 tab PO Q12H PRN PRN Insulin Lispro [Humalog] Med 02/20/20 18:53 Active See Dose Instructions SQ UD PRN Magnesium Oxide 400 mg [Mag-Ox 400] Med 02/21/20 00:01 Active 400 mg PO BID Medication Intervention Med 02/21/20 07:45 Active 1 each MC .RN TO CHECK WITH PT Medication Intervention Med 02/21/20 07:45 Active 1 each MC .RN TO CHECK WITH PT Meropenem [Merrem 500Mg] Med 02/20/20 16:12 Discontinued 500 mg IV .STK-MED ONE Meropenem [Merrem 500Mg] Med 02/20/20 22:12 Discontinued 500 mg IV .STK-MED ONE Meropenem [Merrem 500Mg] Med 02/21/20 05:13 Discontinued 500 mg IV .STK-MED ONE Meropenem [Merrem 500Mg] 500 mg Med 02/20/20 22:00 Active NaCl 0.9% 100 ml Mini-Bag Plus [Sodium Chloride 100ML MINI-BAG PLUS] 100 ml IV Q8HT Meropenem [Merrem 500Mg] 500 mg Med 02/20/20 15:54 Discontinued NaCl 0.9% 100 ml Mini-Bag Plus [Sodium Chloride 100ML MINI-BAG PLUS] 100 ml IV STAT NaCl 0.9% 1000 ml [Sodium Chloride 0.9% 1000 ML] 1,000 Med 02/20/20 14:22 Discontinued ml .ROUTE UD NaCl 0.9% 1000 ml [Sodium Chloride 0.9% 1000 ML] 1,000 Med 02/20/20 23:45 Active ml IV 100 mls/hr NaCl 0.9% 1000 ml [Sodium Chloride 0.9% 1000 ML] 1,000 Med 02/20/20 14:19 Discontinued ml IV 999 mls/hr NaCl 0.9% 100Ml [Sodium Chloride 0.9% 100 ML IVPB] 100 Med 02/20/20 16:13 Discontinued ml IV UD NaCl 0.9% 100Ml [Sodium Chloride 0.9% 100 ML IVPB] 100 Med 02/20/20 22:14 Discontinued ml IV UD Pantoprazole 20 mg [Protonix 20MG Tablet] Med 02/21/20 10:00 Active 20 mg PO DAILY Polyethylene Glycol 3350 17 gm [Miralax Powder 17GM Med 02/21/20 07:20 Active PACKET] 17 gm PO DAILY PRN PRN Prednisone 10 mg [Deltasone 10 mg] Med 02/21/20 10:00 Active 10 mg PO DAILY Simvastatin 20Mg [Zocor 20Mg] Med 02/21/20 00:01 Active 40 mg PO HS Sitagliptin Phosphate 50 MG [Januvia 50 MG] Med 02/21/20 10:00 Active 100 mg PO DAILY Sodium Bicarbonate Med 02/21/20 10:00 Active 650 mg PO DAILY Tamsulosin HCl 0.4 mg [Flomax 0.4 MG] Med 02/21/20 00:01 Active 0.4 mg PO HS Zolpidem Tartrate 10 mg [Ambien 10 MG] Med 02/20/20 23:47 Discontinued 10 mg .ROUTE .STK-MED ONE Zolpidem Tartrate 10 mg [Ambien 10 MG] Med 02/21/20 00:01 Active 10 mg PO HS calcitrioL Med 02/21/20 10:00 Active 0.5 mcg PO DAILY - Vitals & Intake/Output Vital Signs: Vital Signs Temperature 98.8 F 02/21/20 08:00 Pulse Rate 73 02/21/20 08:00 Respiratory Rate 18 02/21/20 08:00 Blood Pressure 122/72 02/21/20 08:00 O2 Sat by Pulse Oximetry 98 02/21/20 08:00 Intake & Output: Intake & Output 02/18/20 02/19/20 02/20/20 02/21/20 11:59 11:59 11:59 11:59 Intake Total 1060 Output Total 400 Balance 660 Weight 52.9 kg - Lab Result Diagrams: 02/21/20 04:45 02/21/20 04:45 Lab Results-Last 24 Hrs: Accuchecks Date 02/21/20 Time 07:00 Accucheck Value: 94 Lab Results-Last 24 Hours 02/20/20 02/20/20 02/20/20 Range/Units 14:15 14:15 14:19 WBC 21.7 H (4.0-10.5) K/mm3 RBC 3.17 L (4.1-5.6) M/mm3 Hgb 9.6 L (12.5-18.0) gm/dl Hct 30.8 L (42-50) % MCV 97.2 (78-100) fl MCH 30.3 (26-32) pg MCHC 31.2 L (32-36) g/dl RDW 18.6 H (11.5-14.0) % Plt Count 220 (150-450) K/mm3 MPV 10.3 (7.5-11.0) fl Gran % (36.0-66.0) % Eos # (Auto) (0-0.5) Absolute Lymphs (auto) (1.0-4.6) Absolute Monos (auto) (0.0-1.3) Lymphocytes % (24.0-44.0) % Monocytes % (0.0-12.0) % Eosinophils % (0.00-5.0) % Basophils % (0.0-0.4) % Absolute Granulocytes (1.4-6.9) Segmented Neutrophils 87 H (36.-66.) % Band Neutrophils 4 H (0.0-2.0) % Lymphocytes (Manual) 7 L (24-44) % Monocytes (Manual) 1 (0.0-12.0) % Eosinophils (Manual) 1 (0.00-3.0) % Basophils # (0-0.4) Dohle Bodies 2+ Platelet Estimate NORMAL (NORMAL) RBC Morphology ABNORMAL Poikilocytosis 1+ Anisocytosis 2+ Microcytosis 1+ Sodium 138 (137-145) mmol/L Potassium 4.9 (3.5-5.1) mmol/L Chloride 103 (98-107) mmol/L Carbon Dioxide 26 (22-30) mmol/L Anion Gap 14.7 (5-15) MEQ/L BUN 59 H (9-20) mg/dL Creatinine 3.63 H (0.66-1.25) mg/dL Estimated GFR 18.6 ML/MIN Glucose 104 (74-106) mg/dL Lactic Acid 0.6 (0.4-2.0) Calcium 8.6 (8.4-10.2) mg/dL Total Bilirubin 0.70 (0.2-1.3) mg/dL AST 23 (17-59) U/L ALT 11 (0-50) U/L Alkaline Phosphatase 65 (38-126) U/L Serum Total Protein 6.5 (6.3-8.2) g/dL Albumin 3.4 L (3.5-5.0) g/dL Urine Color (YELLOW) Urine Appearance (CLEAR) Urine pH (5-6) Ur Specific [place] (1.005-1.025) Urine Protein (Negative) Urine Ketones (NEGATIVE) Urine Blood (0-5) Servando/ul Urine Nitrite (NEGATIVE) Urine Bilirubin (NEGATIVE) Urine Urobilinogen (0-1) mg/dL Ur Leukocyte Esterase (NEGATIVE) Urine WBC (Auto) (0-5) /HPF Urine RBC (Auto) (0-2) /HPF U Epithel Cells (Auto) (FEW) /HPF Urine Bacteria (Auto) (NEGATIVE) /HPF U Non-Squamous Epi Cells (FEW) /HPF Urine Culture Reflexed (NO) Urine Glucose (NEGATIVE) mg/dL Influenza Type A Ag (NEGATIVE) Influenza Type B Ag (NEGATIVE) RSV (PCR) (Negative) 02/20/20 02/20/20 02/21/20 Range/Units 15:00 Unknown 04:45 WBC 12.7 H (4.0-10.5) K/mm3 RBC 2.91 L (4.1-5.6) M/mm3 Hgb 8.8 L (12.5-18.0) gm/dl Hct 28.5 L (42-50) % MCV 97.9 (78-100) fl MCH 30.2 (26-32) pg MCHC 30.9 L (32-36) g/dl RDW 18.5 H (11.5-14.0) % Plt Count 217 (150-450) K/mm3 MPV 10.6 (7.5-11.0) fl Gran % 86.9 H (36.0-66.0) % Eos # (Auto) 0.06 (0-0.5) Absolute Lymphs (auto) 0.83 L (1.0-4.6) Absolute Monos (auto) 0.73 (0.0-1.3) Lymphocytes % 6.6 L (24.0-44.0) % Monocytes % 5.8 (0.0-12.0) % Eosinophils % 0.5 (0.00-5.0) % Basophils % 0.2 (0.0-0.4) % Absolute Granulocytes 11.00 H (1.4-6.9) Segmented Neutrophils (36.-66.) % Band Neutrophils (0.0-2.0) % Lymphocytes (Manual) (24-44) % Monocytes (Manual) (0.0-12.0) % Eosinophils (Manual) (0.00-3.0) % Basophils # 0.03 (0-0.4) Dohle Bodies Platelet Estimate (NORMAL) RBC Morphology Poikilocytosis Anisocytosis Microcytosis Sodium (137-145) mmol/L Potassium (3.5-5.1) mmol/L Chloride (98-107) mmol/L Carbon Dioxide (22-30) mmol/L Anion Gap (5-15) MEQ/L BUN (9-20) mg/dL Creatinine (0.66-1.25) mg/dL Estimated GFR ML/MIN Glucose (74-106) mg/dL Lactic Acid (0.4-2.0) Calcium (8.4-10.2) mg/dL Total Bilirubin (0.2-1.3) mg/dL AST (17-59) U/L ALT (0-50) U/L Alkaline Phosphatase (38-126) U/L Serum Total Protein (6.3-8.2) g/dL Albumin (3.5-5.0) g/dL Urine Color YELLOW (YELLOW) Urine Appearance CLOUDY (CLEAR) Urine pH 7.0 (5-6) Ur Specific [place] 1.010 (1.005-1.025) Urine Protein 100 (Negative) Urine Ketones NEGATIVE (NEGATIVE) Urine Blood SMALL (0-5) Servando/ul Urine Nitrite NEGATIVE (NEGATIVE) Urine Bilirubin NEGATIVE (NEGATIVE) Urine Urobilinogen NEGATIVE (0-1) mg/dL Ur Leukocyte Esterase LARGE (NEGATIVE) Urine WBC (Auto) >100 (0-5) /HPF Urine RBC (Auto) 3-5 (0-2) /HPF U Epithel Cells (Auto) NONE (FEW) /HPF Urine Bacteria (Auto) FEW (NEGATIVE) /HPF U Non-Squamous Epi Cells RARE (FEW) /HPF Urine Culture Reflexed ORDERED SEPARATELY (NO) Urine Glucose NEGATIVE (NEGATIVE) mg/dL Influenza Type A Ag NEGATIVE (NEGATIVE) Influenza Type B Ag NEGATIVE (NEGATIVE) RSV (PCR) NEGATIVE (Negative) 02/20/ Range/Units 04:45 WBC (4.0-10.5) K/mm3 RBC (4.1-5.6) M/mm3 Hgb (12.5-18.0) gm/dl Hct (42-50) % MCV (78-100) fl MCH (26-32) pg MCHC (32-36) g/dl RDW (11.5-14.0) % Plt Count (150-450) K/mm3 MPV (7.5-11.0) fl Gran % (36.0-66.0) % Eos # (Auto) (0-0.5) Absolute Lymphs (auto) (1.0-4.6) Absolute Monos (auto) (0.0-1.3) Lymphocytes % (24.0-44.0) % Monocytes % (0.0-12.0) % Eosinophils % (0.00-5.0) % Basophils % (0.0-0.4) % Absolute Granulocytes (1.4-6.9) Segmented Neutrophils (36.-66.) % Band Neutrophils (0.0-2.0) % Lymphocytes (Manual) (24-44) % Monocytes (Manual) (0.0-12.0) % Eosinophils (Manual) (0.00-3.0) % Basophils # (0-0.4) Dohle Bodies Platelet Estimate (NORMAL) RBC Morphology Poikilocytosis Anisocytosis Microcytosis Sodium 141 (137-145) mmol/L Potassium 4.6 (3.5-5.1) mmol/L Chloride 107 (98-107) mmol/L Carbon Dioxide 26 (22-30) mmol/L Anion Gap 13.2 (5-15) MEQ/L BUN 69 H (9-20) mg/dL Creatinine 3.39 H (0.66-1.25) mg/dL Estimated GFR 20.1 ML/MIN Glucose 94 (74-106) mg/dL Lactic Acid (0.4-2.0) Calcium 7.9 L (8.4-10.2) mg/dL Total Bilirubin (0.2-1.3) mg/dL AST (17-59) U/L ALT (0-50) U/L Alkaline Phosphatase (38-126) U/L Serum Total Protein (6.3-8.2) g/dL Albumin (3.5-5.0) g/dL Urine Color (YELLOW) Urine Appearance (CLEAR) Urine pH (5-6) Ur Specific [place] (1.005-1.025) Urine Protein (Negative) Urine Ketones (NEGATIVE) Urine Blood (0-5) Servando/ul Urine Nitrite (NEGATIVE) Urine Bilirubin (NEGATIVE) Urine Urobilinogen (0-1) mg/dL Ur Leukocyte Esterase (NEGATIVE) Urine WBC (Auto) (0-5) /HPF Urine RBC (Auto) (0-2) /HPF U Epithel Cells (Auto) (FEW) /HPF Urine Bacteria (Auto) (NEGATIVE) /HPF U Non-Squamous Epi Cells (FEW) /HPF Urine Culture Reflexed (NO) Urine Glucose (NEGATIVE) mg/dL Influenza Type A Ag (NEGATIVE) Influenza Type B Ag (NEGATIVE) RSV (PCR) (Negative) Micro Results-Entire Visit: Accuchecks Date 02/21/20 Time 07:00 Accucheck Value: 94 - Radiology Exams Ordered Rad Exams-Entire Visit: Radiology Procedures Category Date Time Status CHEST 1 VIEW (PORTABLE) Stat Exams 02/20/20 14:34 Completed KIDNEY [US] Stat Exams 02/20/20 16:42 Completed - Discharge Discharge Date: 02/21/20 Disposition: Home, Self-Care Condition: Stable Prescriptions: New Ciprofloxacin [Cipro 500 MG] 500 mg PO BID #30 tablet Fluconazole 100 mg [Diflucan 100 MG] 100 mg PO BID #30 tablet No Action Tamsulosin HCl 0.4 mg [Flomax 0.4 MG] 0.4 mg PO HS Sodium Bicarbonate 650 mg PO DAILY predniSONE [Prednisone] 10 mg PO DAILY Polyethylene Glycol 3350 [Miralax] 17 gm PO DAILY PRN PRN PRN Reason: Constipation Gabapentin 300 mg PO TID Folic Acid 1 mg PO DAILY Ferrous Sulfate 325 mg [Feosol 325 mg] 325 mg PO DAILY Cholecalciferol (Vitamin D3) [Vitamin D] 400 unit PO DAILY Atorvastatin Calcium [Lipitor] 40 mg PO HS Aspirin 81 gm Chew [Baby Aspirin 81 mg Chew] 81 mg PO DAILY Zolpidem Tartrate [Ambien] 10 mg PO HS Allopurinol 100 mg [Zyloprim 100 mg] 100 mg PO DAILY Magnesium Oxide 400 mg [Mag-Ox 400] 400 mg PO BID Pantoprazole 20 mg [Protonix 20MG Tablet] 20 mg PO DAILY mycophenolate mofetiL [Mycophenolate Mofetil] 250 mg PO BID Linagliptin [Tradjenta] 5 mg PO DAILY Diclofenac Sodium Gel [Voltaren GEL] 1 gm TOP TIDPRN PRN PRN Reason: Pain Docusate Sodium [Stool Softener] 50 mg PO BID calcitrioL [Calcitriol] 0.5 mcg PO DAILY Hydrocodone Bitartrate [Hysingla ER] 120 mg PO DAILY Follow up with: CASTRO LA MD [Primary Care Provider] - 1 Week
[2020-02-21] MEDS ORDERED: FEOSOL 325 MG PO SCH (10:00)
[2020-02-21] MEDS ORDERED: FOLATE 1 MG PO SCH (10:00)
[2020-02-21] MEDS ORDERED: ECOTRIN 81 MG PO SCH (10:00)
[2020-02-21] MEDS ORDERED: Januvia 50 MG PO SCH (10:00)
[2020-02-21] MEDS ORDERED: Protonix 20MG Tablet PO SCH (10:00)
[2020-02-21] MEDS ORDERED: VITAMIN D PO SCH (10:00)
[2020-02-21] MEDS ORDERED: NON-FORMULARY ITEM (Cholecalciferol (Vitamin D3) [Vitamin D] 400 UNIT) PO SCH (10:00)
[2020-02-21] MEDS ORDERED: ZYLOPRIM 100 MG PO SCH (10:00)
[2020-02-21] MEDS ORDERED: BABY ASPIRIN 81 MG CHEW PO SCH (10:00)
[2020-02-21] MEDS ORDERED: NON-FORMULARY ITEM (Linagliptin [Tradjenta] 5 MG) PO SCH (10:00)
[2020-02-21] MEDS ORDERED: MYCOPHENOLATE MOFETIL 250 MG PO SCH (10:00)
[2020-02-21] MEDS ORDERED: NON-FORMULARY ITEM (Calcitriol [Calcitriol] 0.5 MCG) PO SCH (10:00)
[2020-02-21] MEDS ORDERED: HYDROCODONE BITARTRATE PO SCH (10:00)
[2020-02-21] MEDS ORDERED: DELTASONE 10 MG PO SCH (10:00)
[2020-02-21 12:32] VITALS: BP 121/71; PULSE 100; O2SAT 97
== END 2020-02-21 13:00 | disposition home or self-care (01) ==
LOC: ED 13:57 → MED SURG 20:40
PROVIDERS: ADMIT General Practice; ATTEND General Practice
DX: N39.0 Urinary tract infection, site not specified (principal); Z94.0 Kidney transplant status; R53.81 Other malaise; I10 Essential (primary) hypertension; E78.00 Pure hypercholesterolemia, unspecified; Z79.899 Other long term (current) drug therapy
CPT/HCPCS: 36415; 51702; 76770; 80048; 80053; 81001; 82962; 83605; 85025; 87040; 87086; 87631; 96360; 96365; 99291; G0378; 36000; 71045; 87077; 87186; 99284; A9270-GY

== ENCOUNTER 2021-12-04 17:48 | Emergency (ER) | payer MEDICARE ==
[2021-12-04] MEDS ORDERED: Sodium Chloride 0.9% 1000 ML 1,000 ML IV STA (18:09)
[2021-12-04] MEDS ORDERED: Sodium Chloride 0.9% 1000 ML 1,000 ML ONE (18:18)
[2021-12-04] MEDS ORDERED: MORPHINE SULFATE 4 MG INJ IV ONE ×2 (20:33→21:38)
[2021-12-04] MEDS ORDERED: Zofran 4 MG/2 ML VIAL IV ONE (20:33)
[2021-12-04] MEDS ORDERED: Zofran 4 MG/2 ML VIAL ONE (20:34)
[2021-12-04] MEDS ORDERED: MORPHINE SULFATE 4 MG INJ ONE ×2 (20:34→21:45)
--- NOTE | 2021-12-04 21:19 | ERPHSYRPT ---
- History of Present Illness Time Seen by Provider: 12/04/21 17:58 Source: patient, family Exam Limitations: no limitations Patient Subjective Stated Complaint: Rectal pain Triage Nursing Assessment: Patient brought back to ED via EMS and transferred to bed with assist of 2. Patient A+O x3. Patient's skin pink, warm and dry. Patient reports pain in rectum for the past 3 days. Patient states his bowels have not moved in 3 days. Patient has hx of prostate cancer and takes hydrocodone daily. Physician History: 56 years old male with history of prostate cancer, chronic constipation, on pain medication presented in the ER with rectal pain and inability to have a bowel movement for the last 3 days. Patient reports he has a constant urge to go but cannot. He tried to take himself with finger but few hard palates. He used [id number] laxatives and enema with no significant relief. He is complaining of cramping but cannot go. Patient wants different enema. reports he was supposed to take Colace and MiraLAX but lately he has not been eating and drinking very well and she is not giving him those medication. She reports he mildly dehydrated and fluids to be given. Allergies/Adverse Reactions: NSAIDS (Non-Steroidal Anti-Inflamma Adverse Reaction (Verified 12/04/21 17:50) d/t kidney failure iv Adverse Reaction (Uncoded 12/04/21 17:50) Iv dye d/t kidney failure Home Medications: Aspirin 81 gm Chew [Baby Aspirin 81 mg Chew] 81 mg PO DAILY 07/02/17 [History] Atorvastatin Calcium [Lipitor] 40 mg PO HS 07/02/17 [History] Cholecalciferol (Vitamin D3) [Vitamin D] 400 unit PO DAILY 07/02/17 [History] Ferrous Sulfate 325 mg [Feosol 325 mg] 325 mg PO DAILY 07/02/17 [History] Folic Acid 1 mg PO DAILY 07/02/17 [History] Gabapentin 300 mg PO TID 07/02/17 [History] Polyethylene Glycol 3350 [Miralax] 17 gm PO DAILY PRN PRN 07/02/17 [History] Sodium Bicarbonate 650 mg PO DAILY 07/02/17 [History] Tamsulosin HCl 0.4 mg [Flomax 0.4 MG] 0.4 mg PO HS 07/02/17 [History] Zolpidem Tartrate [Ambien] 10 mg PO HS 07/02/17 [History] predniSONE [Prednisone] 10 mg PO DAILY 07/02/17 [History] Allopurinol 100 mg [Zyloprim 100 mg] 100 mg PO DAILY 04/13/19 [History] Magnesium Oxide 400 mg [Mag-Ox 400] 400 mg PO BID 04/13/19 [History] Linagliptin [Tradjenta] 5 mg PO DAILY 01/05/20 [History] Pantoprazole 20 mg [Protonix 20MG Tablet] 20 mg PO DAILY 01/05/20 [History] mycophenolate mofetiL [Mycophenolate Mofetil] 250 mg PO BID 01/05/20 [History] Diclofenac Sodium Gel [Voltaren GEL] 1 gm TOP TIDPRN PRN 02/20/20 [History] Docusate Sodium [Stool Softener] 50 mg PO BID 02/20/20 [History] Hydrocodone Bitartrate [Hysingla ER] 120 mg PO DAILY 02/20/20 [History] calcitrioL [Calcitriol] 0.5 mcg PO DAILY 02/20/20 [History] Fosfomycin Tromethamine [Monurol] 3 gm PO Q3D 08/26/20 [History] Hx Tetanus, Diphtheria Vaccination/Date Given: No Hx Influenza Vaccination/Date Given: Yes Hx Pneumococcal Vaccination/Date Given: Yes Immunizations Up to Date: Yes Travel Risk - International Travel Have you traveled outside of the country in past 3 weeks: No - Coronavirus Screening Are you exhibiting any of the following symptoms?: No Close contact with a COVID-19 positive Pt in past 14-21 Days: No - Vaccine Status Have you recieved a Covid-19 vaccination: Yes [employer]: [place] - Vaccination Dates Date of 2cond Vaccination (if applicable): September 2021 - Review of Systems Constitutional: No Symptoms Ears, Nose, & Throat: No Symptoms Respiratory: No Symptoms Cardiac: No Symptoms Abdominal/Gastrointestinal: Abdominal Pain, No Nausea, No Vomiting Genitourinary Symptoms: No Symptoms Musculoskeletal: No Symptoms, Arthralgias, Back Pain Skin: No Symptoms Neurological: No Symptoms Hematologic/Lymphatic: No Symptoms Immunological/Allergic: No Symptoms - Past Medical History Pertinent Past Medical History: Yes Neurological History: TIA ENT History: Cataracts Cardiac History: High Cholesterol, Hypertension Respiratory History: No Pertinent History Endocrine Medical History: No Pertinent History Musculoskeletal History: Osteoarthritis, Osteoporosis, Other GI Medical History: GERD, Other History: Renal Disease, Other Psycho-Social History: No Pertinent History Male Reproductive Disorders: Prostate Cancer Other Medical History: kidney transplant 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 rods herniated disc and bone fragment to back. 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 Lamectomy X 2 , pelvic fx. prostate cancer - Past Surgical History Past Surgical History: Yes Neuro Surgical History: No Pertinent History Cardiac: No Pertinent History Respiratory: No Pertinent History Gastrointestinal: No Pertinent History Genitourinary: Kidney Surgery, Kidney Transplant Musculoskeletal: Orthopedic Surgery Male Surgical History: No Pertinent History Other Surgical History: lymph node removed from L neck, fistula L side, back surgery, skin CA removed from L shoulder squamous cell carcinoma and basal cell R scalp and chest. shoulder rotator cuff R side.prostate cancer. Parathyroid removal 1995 and 2011 - Social History Smoking Status: Former smoker Exposure to second hand smoke: No Drug Use: none Patient Lives Alone: No Significant Family History: no pertinent family hx - Nursing Vital Signs Nursing Vital Signs: Initial Vital Signs Temperature 98.8 F 12/04/21 17:55 Pulse Rate 86 12/04/21 17:55 Respiratory Rate 18 12/04/21 17:55 Blood Pressure 132/98 12/04/21 17:55 O2 Sat by Pulse Oximetry 100 12/04/21 17:55 Pain Scale Pain Intensity 7 - Physical Exam General Appearance: no apparent distress, alert Eye Exam: PERRL/EOMI, eyes nml inspection Ears, Nose, Throat Exam: normal ENT inspection, TMs normal Neck Exam: normal inspection, non-tender, supple, full range of motion Respiratory Exam: normal breath sounds, lungs clear Cardiovascular Exam: regular rate/rhythm, normal heart sounds Gastrointestinal/Abdomen Exam: soft, normal bowel sounds, No tenderness, No distention, No guarding Extremity Exam: normal inspection, normal range of motion Neurologic Exam: alert, oriented x 3, cooperative Skin Exam: normal color SpO2 Interpretation: normal SpO2: 100 O2 Delivery: Room Air Ordered Tests: Active Orders 24 hr Category Date Time Status ABDOMEN 2 VIEW Stat Exams 12/04/21 Taken ABDOMEN AND PELVIS W/0 CONTRAS [CT] Stat Exams 12/04/21 21:38 Taken CBC W DIFF Stat Lab 12/04/21 19:50 Completed CMP Stat Lab 12/04/21 19:50 Completed LIPASE Stat Lab 12/04/21 19:50 Completed UA W/RFX UR CULTURE Stat Lab 12/04/21 21:38 Ordered Medication Summary Discontinued Medications Generic Name Dose Route Start Last Admin Trade Name Chitra PRN Reason Stop Dose Admin Hydromorphone HCl Confirm 12/04/21 23:38 Hydromorphone 1 Mg/1ml Inj 1 Mg/Ml Syringe Administered 12/04/21 23:39 Dose 1 mg .ROUTE .STK-MED ONE Sodium Chloride 1,000 mls @ 999 mls/hr 12/04/21 18:09 12/04/21 18:19 Sodium Chloride 0.9% 1000 Ml IV 12/04/21 19:09 999 mls/hr .Q1H1M STA Administration Sodium Chloride Confirm 12/04/21 18:18 Sodium Chloride 0.9% 1000 Ml Administered 12/04/21 18:19 Dose 1,000 mls @ ud .ROUTE .STK-MED ONE Morphine Sulfate 4 mg 12/04/21 20:33 12/04/21 20:42 Morphine Sulfate 4 Mg/Ml Injection IV 12/04/21 20:34 4 mg STAT ONE Administration Morphine Sulfate Confirm 12/04/21 20:34 Morphine Sulfate 4 Mg/Ml Injection Administered 12/04/21 20:35 Dose 4 mg .ROUTE .STK-MED ONE Morphine Sulfate 4 mg 12/04/21 21:38 12/04/21 21:45 Morphine Sulfate 4 Mg/Ml Injection IV 12/04/21 21:39 4 mg STAT ONE Administration Morphine Sulfate Confirm 12/04/21 21:45 Morphine Sulfate 4 Mg/Ml Injection Administered 12/04/21 21:46 Dose 4 mg .ROUTE .STK-MED ONE Ondansetron HCl 4 mg 12/04/21 20:33 12/04/21 20:43 Ondansetron Hcl 4 Mg/2 Ml Vial IV 12/04/21 20:34 4 mg STAT ONE Administration Ondansetron HCl Confirm 12/04/21 20:34 Ondansetron Hcl 4 Mg/2 Ml Vial Administered 12/04/21 20:35 Dose 4 mg .ROUTE .STK-MED ONE Lab/Rad Data: Laboratory Result Diagrams 12/04/21 19:50 12/04/21 19:50 Laboratory Results 12/04/21 12/04/21 Range/Units 19:50 19:50 WBC 9.2 (4.0-10.5) K/mm3 RBC 2.84 L (4.1-5.6) M/mm3 Hgb 9.0 L (12.5-18.0) gm/dl Hct 28.9 L (42-50) % MCV 101.8 H (78-100) fl MCH 31.7 (26-32) pg MCHC 31.1 L (32-36) g/dl RDW 15.3 H (11.5-14.0) % Plt Count 170 (150-450) K/mm3 MPV 11.2 H (7.5-11.0) fl Gran % 90.0 H (36.0-66.0) % Eos # (Auto) 0 (0-0.5) Absolute Lymphs (auto) 0.36 L (1.0-4.6) Absolute Monos (auto) 0.56 (0.0-1.3) Lymphocytes % 3.9 L (24.0-44.0) % Monocytes % 6.1 (0.0-12.0) % Eosinophils % 0.0 (0.00-5.0) % Basophils % 0.0 (0.0-0.4) % Absolute Granulocytes 8.26 H (1.4-6.9) Basophils # 0 (0-0.4) Sodium 137 (137-145) mmol/L Potassium 4.3 (3.5-5.1) mmol/L Chloride 101 (98-107) mmol/L Carbon Dioxide 30 (22-30) mmol/L Anion Gap 10.9 (5-15) MEQ/L BUN 69 H (9-20) mg/dL Creatinine 3.10 H (0.66-1.25) mg/dL Estimated GFR 22.1 ML/MIN Glucose 122 H (74-106) mg/dL Calcium 8.6 (8.4-10.2) mg/dL Total Bilirubin 0.50 (0.2-1.3) mg/dL AST 21 (17-59) U/L ALT 14 (0-50) U/L Alkaline Phosphatase 54 (38-126) U/L Serum Total Protein 5.5 L (6.3-8.2) g/dL Albumin 3.3 L (3.5-5.0) g/dL Lipase 344 H (23-300) U/L Slides for Path Review YES - Progress Progress: improved, pain not gone completely, re-examined Progress Note: 12/04/21 23:29 56 years old is evaluated for constipation/abdominal pain. X-rays are negative, given enema with no significant relief and his pain was getting worse. I have obtained CT abdomen pelvis without contrast which showed some impaction and given soapsuds enema again 12/04/21 23:55 Patient has a very little bowel movement and small amount of blood. Patient does not want to try it again. I have offered patient/ about observation admission and GI/general surgery consultation in the morning for possible colonoscopy to resolve impaction but they decided to go home and will see if he has a bowel movement by tomorrow if not then patient will return to ER. Counseled pt/family regarding: lab results, diagnosis, need for follow-up, rad results - Departure Departure Disposition: Home Clinical Impression: Constipation, Chronic pain syndrome, Fecal impaction Condition: Stable Critical Care Time: No Referrals: XUAN CASE [Primary Care Provider] - Follow Up with PCP/3 days JANINA MCLEOD MD [ACTIVE STAFF] - Follow up/PCP as directed (Tomorrow for reevaluation) Instructions: Constipation, Adult (DC) Additional Instructions: Continue with MiraLAX and stool softener regularly. Increase fiber in diet. Drink plenty of fluids. Follow-up with primary care for reevaluation. Return to ER if again having inability to have bowel movement, worsening pain, per rectal bleeding etc.
[2021-12-04 21:52] LABS: Absolute Neutrophil Ct (ANC) 8.26 (1.4-6.9); Basophil (Absolute #) 0 (0-0.4); Eosinophil (Absolute #) 0 (0-0.5); Hematocrit 28.9 % (42-50); Lymphocyte (Absolute #) 0.36 (1.0-4.6); Lymphocytes % 3.9 % (24.0-44.0); Mean Cell Volume 101.8 fl (78-100); Mean Corpuscular Hemoglobin 31.7 pg (26-32); Mean Corpuscular Hgb Concent. 31.1 g/dl (32-36); Mean Platelet Volume 11.2 fl (7.5-11.0); Monocyte (Absolute #) 0.56 (0.0-1.3); Monocytes % 6.1 % (0.0-12.0); Platelet Count 170 K/mm3 (150-450); Red Blood Count 2.84 M/mm3 (4.1-5.6); Red Cell Distribution Width 15.3 % (11.5-14.0); White Blood Count 9.2 K/mm3 (4.0-10.5)
[2021-12-04 21:54] LABS: ALBUMIN 3.3 g/dL (3.5-5.0); ANION GAP 10.9 MEQ/L (5-15); BILIRUBIN,TOTAL 0.5 mg/dL (0.2-1.3); Calcium 8.6 mg/dL (8.4-10.2); Creatinine 1 3.1 mg/dL (0.66-1.25); EST GLOMERULAR FILTRATION RATE 22.1 ML/MIN; Potassium 4.3 mmol/L (3.5-5.1); Total Protein 5.5 g/dL (6.3-8.2)
[2021-12-04 23:22] LABS: Slide Review 1 YES
[2021-12-04] MEDS ORDERED: Hydromorphone 1 mg/ml Injection ONE (23:38)
[2021-12-05] MEDS ORDERED: Hydromorphone 1 mg/ml Injection IV ONE (00:02)
[2021-12-05 00:08] VITALS: BP 138/94; PULSE 86; O2SAT 98
[2021-12-05 03:07] LABS: Appearance CLOUDY (CLEAR); Bilirubin NEGATIVE (NEGATIVE); Blood NEGATIVE Ery/ul (0-5); Glucose 50 mg/dL (NEGATIVE); Ketones NEGATIVE (NEGATIVE); Leukocyte Esterase NEGATIVE (NEGATIVE); Nitrite NEGATIVE (NEGATIVE); Protein,Urine Dip 30 (Negative); Specific Gravity 1.012 (1.005-1.025); Urobilinogen NEGATIVE mg/dL (0-1)
--- NOTE | 2021-12-05 08:41 | XRAY ---
Indication: Constipation versus obstruction. Comparison: None 2 view abdomen nonacute and nonobstructed with scattered colonic fecal debris. Solid organs unremarkable. Bilateral L1-S1 posterior spinal fusion hardware with bone grafts, L2-L3 intervertebral spacer, and L4 laminectomy. Osseous structures demineralized with old left superior/inferior pubic bone fractures.
--- NOTE | 2021-12-05 08:46 | XRAY ---
Indication: Abdomen pain. Constipation. Multiple contiguous axial images obtained through the abdomen and pelvis without contrast. Comparison: None Lung bases hyperinflated with minimal left base dependent atelectasis. No infiltrate or effusion. Heart not enlarged. Bilateral L1-S1 posterior fusion hardware produces extreme beam artifact limiting exam. Noncontrasted stomach and bowel loops appear nonobstructed. There is moderate diffuse scattered colonic fecal debris throughout with moderate rectal impaction. No obvious free fluid/air. A few hepatic cysts, largest 2.6 cm left lobe. Right lower quadrant demonstrates transplanted kidney with 2.5 cm cortical cyst. [place] kidneys are bilaterally atrophic. Urinary bladder is moderately distended. Chronic pancreatitis calcifications. Remaining liver, gallbladder, pancreas, spleen, adrenal glands, kidneys, ureters, and bladder are unremarkable for noncontrast exam. Minimal scattered aortic calcifications without AAA. Osseous structures demonstrates mild osteopenia and old left superior/inferior pubic bone fractures. Impression: 1. Extreme beam artifact from spinal fusion hardware limits exam. 2. Diffuse fecal stasis with rectal impaction. 3. Right lower quadrant transplanted kidney with cortical cyst. 4. Incidental hepatic cysts, chronic pancreatitis calcifications, and chronic bony findings.
== END 2021-12-05 00:15 | disposition home or self-care (01) ==
LOC: ED 17:48
DX: K56.41 Fecal impaction (principal); G89.4 Chronic pain syndrome; E78.5 Hyperlipidemia, unspecified; I10 Essential (primary) hypertension; N28.9 Disorder of kidney and ureter, unspecified; Z79.84 Long term (current) use of oral hypoglycemic drugs; Z79.52 Long term (current) use of systemic steroids; Z79.891 Long term (current) use of opiate analgesic; Z79.899 Other long term (current) drug therapy
CPT/HCPCS: 36000; 36415; 74021; 74176; 80053; 81001; 83690; 85025; 96360; 96374; 96375; 96376; 99285; J1170; J1642; J2270; J2405